=== PATIENT | male | born 1940 | race Caucasian/White ===

== ENCOUNTER 2021-04-09 18:15 | Inpatient (IN) | payer MEDICARE, SELFPAY ==
[2021-04-09] VITALS (38 sets, daily range): BP systolic 124–145; BP diastolic 59–92; PULSE 78–120; RESP 12–20; TEMP 36.3–36.6; O2SAT 98–100; BMI 19.8
--- NOTE | ~2021-04-09 | US_ITS ---
EXAMINATION: US venous doppler [facility] DATE: 04/11/2021 10:51 INDICATION: Acute pulmonary emboli. TECHNIQUE: Grayscale ultrasound images without and with compression and Doppler ultrasound images of the bilateral lower extremity veins were obtained. COMPARISON: None. FINDINGS: The visualized portions of right common femoral vein, profunda (deep) femoral vein, femoral vein, pop liteal vein, peroneal veins, posterior tibial veins, and greater saphenous vein outflow are patent. The visualized portions of left common femoral vein, profunda femoral vein, femoral vein, popliteal v ein, peroneal veins, posterior tibial veins, and greater saphenous vein outflow are patent. IMPRESSION: 1. No deep venous thrombosis. Reviewed, dictated and finalized at location A.
--- NOTE | ~2021-04-09 | CT_ITS ---
EXAMINATION: CTA chest PE protocol DATE: 04/10/2021 20:17 INDICATION: Asthma and with acute obstructive pulmonary disease and shortness of breath. Elevated d-d luis. TECHNIQUE: Computed tomography (CT) pulmonary angiogram of the chest was performed with 100 mL Omnipa que-350 intravenous contrast. Additional 3D reconstructions utilizing coronal maximum intensity proje ction (MIP) were performed. Automated exposure control and iterative reconstruction technique were em ployed. The dose-length product was 181.69 mGy-cm. COMPARISON: None FINDINGS: Excellent contrast opacification of the pulmonary arteries. There is moderate streak artifact from de nse contrast in the superior vena cava and right atrium. Mild to moderate respiratory motion most pro minent in the lower lung zones where it decreases sensitivity and specificity in some of the segmenta l and subsegmental pulmonary arteries. Pulmonary emboli are seen in the the inferior segmental pulmon peter artery of the lingula amount the anterior basilar segmental pulmonary artery of the left lower lo be, the lateral segmental pulmonary artery of the right middle lobe and the apical segmental pulmonar y artery of the right lower lobe. Moderate to severe emphysema with moderate biapical pleural-parench ymal scarring. No pneumonia, pulmonary edema or pleural effusion. A couple calcified pulmonary nodule s in the right upper lobe and along the left major fissure along with calcified mediastinal lymph nod es and splenic calcific lesions, all consistent with old granulomatous disease. Heart size is normal. No leftward bowing of the ventricular septum to suggest right heart strain. No pericardial effusion. Mild enlargement of the central pulmonary arteries consistent with pulmonary arterial hypertension. Thoracic aorta is normal in caliber with no dissection. Mild thoracic spondylosis. IMPRESSION: 1. Several bilateral pulmonary emboli with small to moderate clot burden. 2. Moderate to severe emphysema. 3. Enlargement of the central pulmonary arteries consistent with pulmonary arterial hypertension. Reviewed, dictated and finalized at location A. IMPRESSION: 1. Several bilateral pulmonary emboli with small to moderate clot burden. 2. Moderate to severe emphysema. 3. Enlargement of the central pulmonary arteries consistent with pulmonary meg rial hypertension.
--- NOTE | ~2021-04-09 | XR_ITS ---
EXAMINATION: XR chest 2V DATE: 04/09/2021 19:07 INDICATION: Shortness of breath. Chronic obstructive pulmonary disease and asthma. TECHNIQUE: frontal and lateral views of the chest were obtained. COMPARISON: Chest radiograph dated 04/28/2019 FINDINGS: Considers hyperexpansion of lungs with flattening of the diaphragm and increased retrosternal clear s pace consistent with emphysema. Unchanged small bilateral calcified pulmonary nodules consistent with old granulomatous disease. No other airspace opacities, pulmonary edema, pleural effusion or pneumot horax. No interval change in a likely nipple shadow projecting inferior to the anterior right fifth r ib. The cardiomediastinal silhouette is normal. Mild thoracic spondylosis. IMPRESSION: 1. Hyperexpansion of lungs consistent with given history of chronic obstructive pulmonary disease. No acute cardiopulmonary disease. Reviewed, dictated and finalized at location A.
--- NOTE | ~2021-04-09 | US_ITS ---
EXAMINATION: US venous doppler [facility] DATE: 04/11/2021 10:51 INDICATION: Acute pulmonary emboli. TECHNIQUE: Grayscale ultrasound images without and with compression and Doppler ultrasound images of the bilateral upper extremity veins were obtained. COMPARISON: None. FINDINGS: The visualized portions of the right internal jugular vein, subclavian vein, axillary vein, brachial veins, basilic vein, cephalic vein, radial vein, and ulnar vein are patent. The visualized portions of the left internal jugular vein, subclavian vein, axillary vein, brachial v eins, basilic vein, cephalic vein, radial vein, and ulnar vein are patent. IMPRESSION: 1. No deep venous thrombosis. Reviewed, dictated and finalized at location A.
--- NOTE | 2021-04-09 18:36 | ECG_ITS ---
Measurements Intervals [place] Rate: 108 P: 81 ID: [id number] QRS: -54 QRSD: 90 T: 80 QT: 322 QTc: 433 Interpretive Statements SINUS TACHYCARDIA ATRIAL PREMATURE COMPLEXES INCOMPLETE RIGHT BUNDLE BRANCH BLOCK LEFT ANTERIOR FASCICULAR BLOCK BASELINE ARTIFACT- I, II, AVR, AVL ABNORMAL ECG Electronically Signed On 04-09-2021 19:51:46 CDT by Eliud Bateman D.O.
--- NOTE | 2021-04-09 19:00 | PC.NURSE ---
Pt off floor to radiology
[2021-04-09 19:13] LABS: Basophils Percent Auto 0.5 % (0.2-1.2); Eosinophils Absolute Auto 0.1 K/mm3 (0-0.3); Eosinophils Percent Auto 1.4 % (0-4.4); Hematocrit 40.3 % (42.0-52.0); Hemoglobin 13.1 g/dL (14.0-18.0); Immature Granulocyte Absolute 0.04 K/mm3 (0.00-0.031); Immature Granulocyte Percent A 0.5 % (0-0.5); Lymphocytes Absolute Auto 1.92 K/mm3 (0.9-3.2); Lymphocytes Percent Auto 22.2 % (18.3-44.2); Mean Corpuscular HGB Conc 32.5 g/dl (32-36); Mean Corpuscular Hemoglobin 32.8 pg (26-34); Mean Corpuscular Volume 100.8 fl (80-100); Mean Platelet Volume 9.8 fl (7.4-10.4); Monocytes Absolute Auto 0.7 K/mm3 (0.1-0.6); Monocytes Percent Auto 8.2 % (2.6-8.5); Neutrophils Absolute Auto 5.8 K/mm3 (1.3-6.7); Neutrophils Percent Auto 67.2 % (45.5-73.1); Platelet Count Result 256 k/mm3 (150-375); Red Cell Distribution Width 14.8 % (11.5-14.5); White Blood Count 8.6 K/mm3 (4.5-10.0)
[2021-04-09 19:22] LABS: Anion Gap 6 mmol/L (8-16); Blood Urea Nitrogen 22 mg/dL (9-20); Calcium 9.7 mg/dL (8.4-10.2); Carbon Dioxide 32 mmol/L (22-30); Chloride 101 mmol/L (98-107); Estimated CRCL calculation 57 ml/min; Estimated Glomerular Filt Rate > 60; Glucose 119 mg/dL (65-110); Potassium 3.9 mmol/L (3.4-5.0); Sodium 139 mmol/L (137-145)
--- NOTE | 2021-04-09 19:48 | ED.GENADULT ---
HPI - General Adult General Chief complaint: Shortness of Breath/Dyspnea Stated complaint: SOB Time Seen by Provider: 04/09/21 19:23 Source: patient and EMS History of Present Illness HPI narrative: Patient is a 80 y/o male complaining of moderate SOB starting today. There is no known alleviating or exacerbating factor. He has some dry cough. He has no chest pain or fever. He was given Neb treatment. Related Data Home Medications Medication Instructions Recorded Confirmed albuterol sulfate 90 mcg/actuation 1 inhalation INHALATION Q6H PRN gm 06/28/19 06/28/19 aerosol inhaler budesonide-formoterol HFA 160 2 puff INHALATION Q12H 06/28/19 06/28/19 mcg-4.5 mcg/actuation aerosol inhaler Allergies Allergy/AdvReac Type Severity Reaction Status Date / Time No Known Allergies Allergy Verified 04/09/21 18:33 Review of Systems Constitutional: Constitutional: Denies chills, Denies fever(s), Denies headache(s) and Denies weakness Eyes: Eyes: Denies blurry vision ENT: Denies headache(s) and Denies neck pain Cardiovascular: Cardiovascular: Denies chest pain and Reports dyspnea Respiratory: Respiratory: Reports cough and Reports dyspnea Gastrointestinal: Gastrointestinal: Denies abdominal pain, Denies diarrhea, Denies nausea and Denies vomiting Genitourinary: Genitourinary: Denies hematuria and Denies dysuria Musculoskeletal: Musculoskeletal: Denies back pain and Denies neck pain Neurologic: Denies headache(s) and Denies weakness PMFSH Past Medical History Medical History (Updated 04/09/21 @ 20:58 by Kym Neumann MD) Asthma Cataract 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 Cataract, left eye Cataract, right eye COPD (chronic obstructive pulmonary disease) Encounter for long-term (current) use of other medications Heart disease Family History Family History Father Diabetes mellitus Sibling Kidney disease Social History Social History Smoking packs per day: 0.5 Smoking cigarettes per day: 10.0 Years smoked: 64 Smoking pack-years: 32.00 Smoking status: Current every day smoker Alcohol intake: never Substance use: never Exam Const: General: no acute distress and well developed Orientation/consciousness: oriented to person, oriented to place and confusion HENMT: Head: normocephalic Ears: external ears normal General nose exam: Normal external nose present Eyes: General: appearance normal, both eyes and all related structures Conjunctivae: conjunctivae normal Neck: Neck: normal visual inspection and full ROM Chest: Chest palpation & inspection: normal inspection of the chest and no tenderness Resp: Effort & Inspection: normal respiratory effort Auscultation: wheezes Cardio: Rate: regular rate Rhythm: regular rhythm GI: GI Palp: No abdominal tenderness and Yes Soft to palpation Skin: General skin exam: normal color and turgor normal Neuro: General: oriented to person and oriented to place Cognition (Neuro): abnormal cognition Extrem: General: normal to inspection, full ROM and no pedal edema Psych: Appearance: grossly normal Mental Status: mental status grossly normal Affect: normal affect Course Consultations Consultation #1: Discussed with Dr. Casper, who agrees to admit. Date: 04/09/21 Time: 20:17 Vital Signs Vital signs: Vital Signs Temperature 36.6 C 04/09/21 18:19 Pulse Rate 108 H 04/09/21 18:19 Respiratory Rate 16 04/09/21 18:19 Blood Pressure 128/59 L 04/09/21 18:19 Pulse Oximetry 99 04/09/21 18:19 Temperature 36.6 C 04/09/21 18:19 Pulse Rate 102 H 04/09/21 20:04 Respiratory Rate 16 04/09/21 20:04 Blood Pressure 128/59 L 04/09/21 18:19 Pulse Oximetry 100 04/09/21 18:33 Medical Decision Making Vital Signs Vital Signs: Vital Signs Temperature 36.6 C 04/09/21 18:19 Pulse Rate 108 H 04/09/21 18
[2021-04-09] MEDS: methylPREDNISolone SOD SUCC 125 MG VIAL IV PUSH (20:00)
[2021-04-09] MEDS: IPRATROPIUM BR 0.02% INH SOLN 0.5 MG/2.5 ML VIAL INHALATION (20:04)
[2021-04-09] MEDS: ALBUTEROL SULFATE NEB 2.5 MG/0.5 ML INH INHALATION (20:04)
[2021-04-09 20:36] LABS: Troponin I < 0.012 ng/mL (0.000-0.034)
--- NOTE | 2021-04-09 20:52 | PC.NURSE ---
Called [facility] in [place] to clarify code status. Per EMS, staff stated patient was DNR but no legal paperwork was sent. Requested paperwork be sent to our facility.
[2021-04-10] VITALS (20 sets, daily range): BP systolic 119–129; BP diastolic 59–73; PULSE 61–108; RESP 14–24; TEMP 36.2–36.9; O2SAT 93–100
--- NOTE | 2021-04-10 04:26 | PM.IMHP ---
H&P: HPI History of Present Illness Date/Time: 04/10/21 04:26 Chief Complaint: SHORTNESS OF BREATH Narrative: THIS IS A 80-YEAR-OLD MALE WITH PAST MEDICAL HISTORY SIGNIFICANT FOR COPD, TOBACCO DEPENDENCE, CHRONIC PAIN. PATIENT IS A USP RESIDENT, HE WAS BROUGHT IN TODAY DUE TO CONCERNS HE WAS HAVING INCREASINGLY WORSENING SHORTNESS OF BREATH WITH COUGH AND SPUTUM PRODUCTION. AT THE TIME OF MY VISIT PATIENT WAS IN THE EMERGENCY ROOM AND HE DENIED ANY DISCOMFORT HE WANTED SOMETHING TO EAT, STATED THAT HE HAS BEEN HAVING A LOT OF SHORTNESS OF BREATH OF LATELY AND HE SMOKES 1 PACK OF CIGARETTES DAILY. PRELIMINARY WORKUP WAS SIGNIFICANT FOR CHEST X-RAY WITH HYPER IN FLEXION OF THE LUNGS, REST OF WORKUP WAS ESSENTIALLY NONREVEALING. PATIENT HAS BEEN PLACED IN OBSERVATION FOR FURTHER MANAGEMENT AND TREATMENT. 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 Cataract, left eye Cataract, right eye COPD (chronic obstructive pulmonary disease) Encounter for long-term (current) use of other medications Heart disease Family History Family History Father Diabetes mellitus Sibling Kidney disease Social History Social History Smoking packs per day: 1 Smoking cigarettes per day: 20.0 Years smoked: 64 Smoking pack-years: 64.00 Smoking status: Former smoker Tobacco type: cigarettes Second hand tobacco smoke exposure: Yes Alcohol intake: never Substance use: never Substance use type: does not use Spiritual care concerns: No Meds Home Medications and Allergies Home Medications Medication Instructions Recorded Confirmed Type ipratropium 0.5 mg-albuterol 3 mg 3 ml INHALATION Q6H PRN #180 ml 06/28/19 04/09/21 Rx (2.5 mg base)/3 mL nebulization soln hydrocodone-acetaminophen 1 tablet PO Q4H PRN 04/09/21 04/09/21 History nicotine 1 patch TRANSDERMAL DAILY 04/09/21 04/09/21 History Allergies Allergy/AdvReac Type Severity Reaction Status Date / Time No Known Allergies Allergy Verified 04/09/21 22:59 Vital Signs Vital Signs - 24 hr 04/09/21 18:19 04/09/21 18:28 04/09/21 18:29 Temperature 98 F Pulse Rate 108 H 109 H 113 H Respiratory Rate 16 17 13 Blood Pressure 128/59 L 128/59 L Pulse Oximetry 99 100 100 04/09/21 18:30 04/09/21 18:31 04/09/21 18:33 Temperature Pulse Rate 108 H 107 H 110 H Respiratory Rate 15 15 Blood Pressure Pulse Oximetry 99 100 100 04/09/21 18:45 04/09/21 18:46 04/09/21 18:51 Temperature Pulse Rate 114 H 107 H 103 H Respiratory Rate 18 12 18 Blood Pressure 137/79 Pulse Oximetry 99 99 99 04/09/21 19:06 04/09/21 19:07 04/09/21 19:15 Temperature Pulse Rate 101 H 109 H 111 H Respiratory Rate 19 16 17 Blood Pressure 131/87 Pulse Oximetry 99 100 98 04/09/21 19:16 04/09/21 19:30 04/09/21 19:45 Temperature Pulse Rate 109 H 106 H 104 H Respiratory Rate 18 17 Blood Pressure 124/92 H Pulse Oximetry 98 98 99 04/09/21 19:47 04/09/21 20:02 04/09/21 20:04 Temperature Pulse Rate 101 H 120 H 102 H Respiratory Rate 17 13 16 Blood Pressure 143/90 H Pulse Oximetry 99 99 04/09/21 20:39 04/09/21 20:45 04/09/21 20:46 Temperature Pulse Rate 101 H 93 95 Respiratory Rate 16 15 13 Blood Pressure 145/88 H Pulse Oximetry 100 100 99 04/09/21 21:00 04/09/21 21:01 04/09/21 21:02 Temperature Pulse Rate 98 92 93 Respiratory Rate 13 20 16 Blood Pressure 145/87 H Pulse Oximetry 100 100 100 04/09/21 21:15 04/09/21 21:16 04/09/21 21:30 Temperature Pulse Rate 95 92 87 Respiratory
[2021-04-10] MEDS: methylPREDNISolone SOD SUCC 40 MG VIAL IV PUSH ×3 (06:21→17:30)
[2021-04-10] MEDS: ALBUTEROL SULFATE NEB 2.5 MG/0.5 ML INH INHALATION ×5 (08:06→21:31)
--- NOTE | 2021-04-10 13:04 | PM.IMPN ---
Progress Note: A&P Assessment and Plan (1) Asthma exacerbation in COPD: Code(s): J44.1 - Chronic obstructive pulmonary disease with (acute) exacerbation; J45.901 - Unspecified asthma with (acute) exacerbation Status: Acute Assessment and Plan: Patient appears to be having an COPD exacerbation with minimal improvement -continue IV steroids, albuterol nebs, and will add scheduled Atrovent nebs -patient has been placed on Levaquin due to severity of COPD exacerbation -no PE suspected at this time. No signs of DVT. Will monitor -add Symbicort, obtain pulmonology consult -consider further lung imaging such as a high resolution CT if pt fails to improve. Will await recommendations from pulmonology -Will give mag x 1 now to see if this helps. He admits to having asthma and COPD (2) Tobacco dependence: Code(s): F17.200 - Nicotine dependence, unspecified, uncomplicated Status: Acute Assessment and Plan: Nicotine patch as needed (3) Sinus tachycardia: Code(s): R00.0 - Tachycardia, unspecified Status: Acute Assessment and Plan: Likely due to lung disease -no cp -ekg reviewed -monitor Time Spent With Patient Time with patient: 25 - 35 minutes Subjective Date/time seen: 04/10/21 13:04 Interval history: Pt is a 80-year-old male here for COPD exacerbation. Patient was seen today and states he is feeling pretty short of breath. He says he does well for about 4 hours but right before his next breathing treatment he feels short of breath and requires the breathing treatment pretty immediately. He says they do help but he does not feel much better. Continues to cough and is coughing up a little sputum. He denies chest pain, nausea, vomiting, fevers, chills, abdominal pain or dysuria. He states he does not use oxygen at home. He does smoke but is declining a nicotine patch. Review of Systems Review of Systems: All systems reviewed & are unremarkable except as noted in HPI and below Exam Narrative: General: Underweight patient resting comfortably in bed in no acute distress but short of breath HEENT: normocephalic Neck: supple Neuro: Alert and oriented x4 CV:RRR Resp: Significantly wheezy bilaterally with some rhonchi. Slight conversational dyspnea with long sentences. Sitting up and leaning forward Abd: Soft, non distended. No pain to palpation. Positive bowel sounds Extremities: No swelling, erythema, or pain to palpation. Objective Data Vital Signs Vital Signs: Vital Signs - 24 hr 04/09/21 18:19 04/09/21 18:28 04/09/21 18:29 Temperature 98 F Pulse Rate 108 H 109 H 113 H Respiratory Rate 16 17 13 Blood Pressure 128/59 L 128/59 L Pulse Oximetry 99 100 100 04/09/21 18:30 04/09/21 18:31 04/09/21 18:33 Temperature Pulse Rate 108 H 107 H 110 H Respiratory Rate 15 15 Blood Pressure Pulse Oximetry 99 100 100 04/09/21 18:45 04/09/21 18:46 04/09/21 18:51 Temperature Pulse Rate 114 H 107 H 103 H Respiratory Rate 18 12 18 Blood Pressure 137/79 Pulse Oximetry 99 99 99 04/09/21 19:06 04/09/21 19:07 04/09/21 19:15 Temperature Pulse Rate 101 H 109 H 111 H Respiratory Rate 19 16 17 Blood Pressure 131/87 Pulse Oximetry 99 100 98 04/09/21 19:16 04/09/21 19:30 04/09/21 19:45 Temperature Pulse Rate 109 H 106 H 104 H Respiratory Rate 18 17 Blood Pressure 124/92 H Pulse Oximetry 98 98 99 04/09/21 19:47 04/09/21 20:02 04/09/21 20:04 Temperature Pulse Rate 101 H 120 H 102 H Respiratory Rate 17 13 16 Blood Pressure 143/90 H Pulse Oximetry 99 99 04/09/21 20:39 04/09/21 20:45 04/09/21 20:46 Temperature Pulse Rate 101 H 93 95 Respiratory Rate 16 15 13 Blood Pressure 145/88 H Pulse Oximetry 100 100 99 04/09/21 21:00 04/09/21 21:01 04/09/21 21:02 Temperature Pulse Rate 98 92 93 Respiratory Rate 13 20 16 Blood Pressure 145/87 H Pulse Oximetry 100 100 100 04/09/21 21:15
[2021-04-10] MEDS: IPRATROPIUM BR 0.02% INH SOLN 0.5 MG/2.5 ML VIAL INHALATION ×3 (13:58→21:32)
[2021-04-10] MEDS: MAGNESIUM SULF 2 GM/WATER 50ML 2 GM/50 ML BAG IVPB (14:07)
[2021-04-10 14:10] LABS: Alveolar/Arterial O2 Gradient 52.7 mmHg; Base Excess ABG 2.1 mEq/l (+/-2.0); Carboxyhemoglobin 0.3 % THb (0-2.0); Device NASAL CANNULA; Fractional Inspired Oxygen 28 %; HCO3 ABG 27.3 mEq/l (22.0-26.0); Methemoglobin ABG 0.4 %THb (0-1.5); Modified Allen's Test Pass; Oxygen Content ABG 18.4 %vol (16.0-22.0); Oxygen Saturation ABG 97.2 % (95.0-100.0); Oxyhemoglobin 95.9 % THb (90.0-100.0); PCO2 ABG 44.8 mmHg (35.0-45.0); PO2 ABG 94.1 mmHg (80.0-100.0); PO2 FiO2 Ratio Arterial Blood 3.36 %; Reduced Hemoglobin 3.4 %THb (0-5.0); Site Drawn RIGHT RADIAL; Total Hemoglobin 13.6 g/dL (12.0-18.0); pH ABG 7.403 (7.350-7.450)
--- NOTE | 2021-04-10 16:08 | PM.CNPUL ---
Assessment and Plan Assessment and plan (1) Asthma-COPD overlap syndrome: Code(s): J44.9 - Chronic obstructive pulmonary disease, unspecified Status: Acute Assessment and Plan: Patient tells me that he had asthma as a child and has asthma since age 23 and also with COPD. I have no PFTs. Patient does have hyper inflation on his chest x-ray. Patient currently with 1 day onset acute shortness of breath and has improved with Solu-Medrol, bronchodilators and antibiotics. I will check a D-dimer and if this is positive I will perform a CT angiogram of the chest to exclude pulmonary embolism. At this time I agree with Solu-Medrol 40 mg IV q.6, albuterol 2.5 mg q.4 nebulize, ipratropium 0.5 mg nebs q.4 hours. Will discontinue Symbicort as he is on maximal beta agonists with the albuterol 2.5 mg nebs Q for and is on systemic steroids at this time. Continue Levaquin at this time. Of note patient states that he tells me he wheezes every day even when he is feeling well. His blood gas on 2 L was 7.40/45/90 for so there is no evidence of hypercarbic respiratory failure. Continue supplemental oxygen to maintain saturations 90-94%. Wean as tolerated. Will follow with you. History of Present Illness History of Present Illness Consult date: 04/10/21 Requesting physician: Mahsa Perdomo PA-C Reason for consult: asthma and COPD Chief complaint: COPD Exacerbation Narrative: This is a new Pulmonary consult for COPD 80-year-old man with a history of asthma, COPD, status post colostomy for unknown reasons presented to the emergency department on 04/09/2021 with shortness of breath. patient tells me that he has asthma as a child and then outgrew it but his asthma returned at age 23. Patient is a lifelong smoker from age 16 and he quit 6 months ago at 1 pack per day and was diagnosed with COPD many years ago. Patient states that at baseline he has 4 block dyspnea on exertion, a chronic cough with no phlegm production and That he does not wear oxygen at his group home. Patient tells me that he developed shortness of breath acutely with no relief from his albuterol and ipratropium DuoNeb. Patient presented to the emergency department on 04/09 with wheezing, white blood cell count 8.6 with eosinophils 1.4% or 117 per micro L, a blood gas on 2 L nasal cannula with a pH of 7.40/45/94. A chest x-ray with hyper expansion and no focal infiltrates. Patient was treated for a COPD exacerbation with IV Solu-Medrol Juanito M a albuterol and ipratropium nebulizers and Levaquin antibiotic. 04/10 Patient tells me that he is 70% back to normal but that he still has some congestion. Patient denied fever, chills, rigors, chest pain. Patient tells me that he had no change in his chronic cough and no change in his chronic phlegm production. Patient states that he smoked 1 pack of day of cigarettes from age 16 to 6 months ago for total of 64 pack years. Patient was exposed to secondhand smoke from his father and recently from his 2 daughters that he lived with. Patient denies vaping, illicit drug use, sandblasting, welding, asbestos work or professional painting. 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 DATA: EXAMINATION: XR chest 2V DATE: 04/09/2021 19:07 INDICATION: Shortness of breath. Chronic obstructive pulmonary disease and asthma. TECHNIQUE: frontal and lateral views of the chest were obtained. COMPARISON: Chest radiograph dated 04/28/2019 FINDINGS: Considers hyperexpansion of lungs with flattening of the diaphragm and increased retrosternal clear space consistent with emphysema. Unchanged small bilateral calcified pulmonary nodules consistent with old granulomatous disease. No other airspace opacities, pulmonary edema, pleural effusion or pneumothorax. No interval change in a likely nipple shadow projecting inferior to the anterior right fifth rib.
[2021-04-10 19:23] LABS: D Dimer 1.86 ug/mL (<0.48)
[2021-04-10 21:22] LABS: Partial Thromboplastin Time 26.5 SECONDS (22.3-36.8); Prothrombin Time 13.5 Seconds (11.1-14.7)
[2021-04-10 21:29] LABS: Basophils Percent Auto 0.1 % (0.2-1.2); Hematocrit 41.2 % (42.0-52.0); Hemoglobin 13.4 g/dL (14.0-18.0); Immature Granulocyte Absolute 0.09 K/mm3 (0.00-0.031); Immature Granulocyte Percent A 0.7 % (0-0.5); Lymphocytes Absolute Auto 0.47 K/mm3 (0.9-3.2); Lymphocytes Percent Auto 3.5 % (18.3-44.2); Mean Corpuscular HGB Conc 32.5 g/dl (32-36); Mean Corpuscular Hemoglobin 32.8 pg (26-34); Mean Corpuscular Volume 100.7 fl (80-100); Mean Platelet Volume 9.9 fl (7.4-10.4); Monocytes Absolute Auto 0.2 K/mm3 (0.1-0.6); Monocytes Percent Auto 1.3 % (2.6-8.5); Neutrophils Absolute Auto 12.7 K/mm3 (1.3-6.7); Neutrophils Percent Auto 94.4 % (45.5-73.1); Platelet Count Result 284 k/mm3 (150-375); Red Blood Count 4.09 M/mm3 (4.6-6.20); Red Cell Distribution Width 14.6 % (11.5-14.5); White Blood Count 13.5 K/mm3 (4.5-10.0)
[2021-04-10] MEDS: HEPARIN SOD/D5W 100 UNITS/ML 25,000 UNITS/250 ML BAG 10 UNITS IV CONT (22:12)
[2021-04-10] MEDS: HEPARIN SODIUM 5,000 UNITS/ML VIAL 4500 UNITS IV PUSH (22:19)
[2021-04-11] VITALS (20 sets, daily range): BP systolic 123–138; BP diastolic 62–94; PULSE 53–106; RESP 14–20; TEMP 36.3–37.1; O2SAT 92–100
--- NOTE | 2021-04-11 | ECHO_ITS ---
Patient Info Name: Rey Cole Age: 80 years : 1940 Gender: Male Ht: 66 in Wt: 122 lbs BSA: 1.60 m2 HR: 82 bpm BP: 137 / 76 mmHg Exam Date: 04/11/2021 12:07 PM Exam Location: [facility] Patient Status: Inpatient Admit Date: 04/10/2021 Staff Ordering Physician: Matthew Saez MD Hospital Nurse Liaison: Sy Rawls RDCS, RT Attending Provider: Mahsa Perdomo PA-C Referring Physician: Se COVARRUBIAS; Exam Type: CA echo doppler color flow Study Info Indications I26.99 - Other pulmonary embolism without acute cor pulmonale Complete two-dimensional, color flow and Doppler transthoracic echocardiogram is performed. Strain analysis performed. Summary 1. Complete two-dimensional, color flow and Doppler transthoracic echocardiogram is performed. 2. Left ventricular chamber dimension is normal. 3. Left ventricular systolic function is normal, estimated at 60-65%. 4. The left ventricular diastolic function is grade I diastolic dysfunction. 5. E/e' 10 is mildly elevated. 6. Global longitudinal strain is normal at -18.6%. Left Ventricle E/e' 10 is mildly elevated. Global longitudinal strain is normal at -18.6%. Left ventricular chamber dimension is normal. Left ventricular systolic function is normal, estimated at 60-65%. The left ventricular diastolic function is grade I diastolic dysfunction. Right Ventricle Right ventricular systolic function is normal and with normal TAPSE 2.1 cm. Right ventricular chamber dimension is normal. Left Atria Left atrial chamber dimension is normal. Right Atria Right atrial chamber dimension is normal. Aortic Valve The aortic valve is trileaflet. There is no aortic valve stenosis. There is no aortic valve regurgitation. Pulmonic Valve There is no pulmonic regurgitation. Mitral Valve There is no mitral valve stenosis. There is no mitral valve regurgitation. Tricuspid Valve There is no tricuspid valve regurgitation. Pericardium/Pleural There is no pericardial effusion. Inferior Vena Cava Normal inferior vena cava with >50% collapse upon inspiration consistent with normal right atrial pressure, 5 mmHg. Aorta The aortic root size at the sinus of Valsalva is normal. Left Ventricular Outflow Tract Name Value Normal LVOT 2D LVOT Diameter 2.1 cm LVOT Doppler LVOT Peak Gradient 4 mmHg LVOT Mean Gradient 2 mmHg LVOT VTI 22 cm LVOT VTI/AV VTI Ratio 0.8 LVOT Stroke Volume 78 ml LVOT CO 5.2 l/min LVOT CI 3.3 l/min/m2 Mitral Valve Name Value Normal MV Doppler MV Decel Jasper 414 cm/s2 MV PHT 56 ms MV Ar
[2021-04-11] MEDS: methylPREDNISolone SOD SUCC 40 MG VIAL IV PUSH ×2 (00:43→05:14)
[2021-04-11] MEDS: ALBUTEROL SULFATE NEB 2.5 MG/0.5 ML INH INHALATION ×5 (01:08→21:48)
[2021-04-11] MEDS: IPRATROPIUM BR 0.02% INH SOLN 0.5 MG/2.5 ML VIAL INHALATION ×5 (01:09→21:48)
[2021-04-11 05:56] LABS: Basophils Percent Auto 0.1 % (0.2-1.2); Hematocrit 37.3 % (42.0-52.0); Hemoglobin 12.1 g/dL (14.0-18.0); Immature Granulocyte Percent A 0.6 % (0-0.5); Lymphocytes Absolute Auto 0.71 K/mm3 (0.9-3.2); Lymphocytes Percent Auto 4.5 % (18.3-44.2); Mean Corpuscular HGB Conc 32.4 g/dl (32-36); Mean Corpuscular Volume 101.6 fl (80-100); Mean Platelet Volume 10.3 fl (7.4-10.4); Monocytes Absolute Auto 0.4 K/mm3 (0.1-0.6); Monocytes Percent Auto 2.3 % (2.6-8.5); Neutrophils Absolute Auto 14.6 K/mm3 (1.3-6.7); Neutrophils Percent Auto 92.5 % (45.5-73.1); Platelet Count Result 258 k/mm3 (150-375); Red Blood Count 3.67 M/mm3 (4.6-6.20); Red Cell Distribution Width 14.5 % (11.5-14.5); White Blood Count 15.8 K/mm3 (4.5-10.0)
[2021-04-11 06:03] LABS: Partial Thromboplastin Time 142.9 SECONDS (22.3-36.8)
[2021-04-11 06:09] LABS: Alanine Aminotransferase 15 U/L (4-50); Albumin Level 3.4 g/dL (3.5-5.1); Alkaline Phosphatase 79 U/L (38-126); Anion Gap 8 mmol/L (8-16); Aspartate Amino Transferase 19 U/L (17-59); Bilirubin,Total 0.5 mg/dL (0.2-1.3); Blood Urea Nitrogen 23 mg/dL (9-20); CRP 0.8 mg/dL (<1.0); Calcium 9.1 mg/dL (8.4-10.2); Carbon Dioxide 27 mmol/L (22-30); Chloride 101 mmol/L (98-107); Estimated CRCL calculation 59 ml/min; Estimated Glomerular Filt Rate > 60; Glucose 178 mg/dL (65-110); Potassium 3.9 mmol/L (3.4-5.0); Sodium 136 mmol/L (137-145)
[2021-04-11 07:08] LABS: Folic Acid 14.5 ng/mL (2.76->20)
--- NOTE | 2021-04-11 09:06 | PM.PNPUL ---
Progress Note: A&P Assessment and Plan (1) Asthma-COPD overlap syndrome: Code(s): J44.9 - Chronic obstructive pulmonary disease, unspecified Status: Acute Assessment and Plan: 04/10 Patient tells me that he had asthma as a child and has asthma since age 23 and also with COPD. I have no PFTs. Patient does have hyper inflation on his chest x-ray. Patient currently with 1 day onset acute shortness of breath and has improved with Solu-Medrol, bronchodilators and antibiotics. I will check a D-dimer and if this is positive I will perform a CT angiogram of the chest to exclude pulmonary embolism. At this time I agree with Solu-Medrol 40 mg IV q.6, albuterol 2.5 mg q.4 nebulize, ipratropium 0.5 mg nebs q.4 hours. Will discontinue Symbicort as he is on maximal beta agonists with the albuterol 2.5 mg nebs Q for and is on systemic steroids at this time. Continue Levaquin at this time. Of note patient states that he tells me he wheezes every day even when he is feeling well. His blood gas on 2 L was 7.40/45/90 for so there is no evidence of hypercarbic respiratory failure. Continue supplemental oxygen to maintain saturations 90-94%. Wean as tolerated. 04/11 Patient states that he continues to improve. He tells me he has 90% back to his baseline. He still has some congestion. He denies any chest pain. Patient does have wheezing on exam but he tells me he wheezes every day even when he is feeling well. Saturations were 100% on 2 L, I turned him to room air and his saturations were 89%. I placed him on 1 L and he was 93%. I will discontinue Solu-Medrol and place him on prednisone 40 mg p.o. q.day. I will continue albuterol and ipratropium nebulizers q.4 hours. I will continue Levaquin (started 04/10) for his cough and congestion. No evidence of a pneumonia on the CT angiogram of the chest. Will follow with you. (2) Pulmonary embolism: Code(s): I26.99 - Other pulmonary embolism without acute cor pulmonale Status: Acute Assessment and Plan: 04/11 To denies chest pain, hemoptysis or any active bleeding today. on 04/10 D Dimer positive and CTA demonstrated segmental PE in lingula, LLL, RML and RLL started on IV heparin drip. He also has apical predominant severe centrilobular and mild paraseptal emphysema. Mild enlargement of the pulmonary arteries. No focal infiltrates. No consolidations. No masses. I will obtain echocardiogram to assess for LV and RV function, and pulmonary pressures. I will obtain upper and lower extremity Dopplers looking for DVT. Patient has tolerated the IV heparin overnight with out any signs of active bleeding and I will discuss with the hospitalist conversion to a direct oral anticoagulant that his insurance will cover. Subjective Date/time seen: 04/11/21 09:06 Interval history: 04/10 This is a new Pulmonary consult for COPD 80-year-old man with a history of asthma, COPD, status post colostomy for unknown reasons presented to the emergency department on 04/09/2021 with shortness of breath. patient tells me that he has asthma as a child and then outgrew it but his asthma returned at age 23. Patient is a lifelong smoker from age 16 and he quit 6 months ago at 1 pack per day and was diagnosed with COPD many years ago. Patient states that at baseline he has 4 block dyspnea on exertion, a chronic cough with no phlegm production and That he does not wear oxygen at his intermediate. Patient tells me that he developed shortness of breath acutely with no relief from his albuterol and ipratropium DuoNeb. Patient presented to the emergency department on 04/09 with wheezing, white blood cell count 8.6 with eosinophils 1.4% or 117 per micro L, a blood gas on 2 L nasal cannula with a pH of 7.40/45/94. A chest x-ray with hyper expansion and no focal infiltrates. Patient was treated for a COPD exacerbation with IV Solu-Medrol Juanito M a albuterol and ipratropium nebulizers
[2021-04-11 10:08] LABS: NT Pro B Type Natriuretic Pept 219 pg/mL (5-100); Troponin I < 0.012 ng/mL (0.000-0.034)
[2021-04-11] MEDS: predniSONE 20 MG TABLET 40 MG PO (12:08)
[2021-04-11] MEDS: HEPARIN SODIUM 5,000 UNITS/ML VIAL 2000 UNITS IV PUSH (12:51)
--- NOTE | 2021-04-11 15:28 | PM.IMPN ---
Progress Note: A&P Assessment and Plan (1) Asthma exacerbation in COPD: Code(s): J44.1 - Chronic obstructive pulmonary disease with (acute) exacerbation; J45.901 - Unspecified asthma with (acute) exacerbation Status: Acute Assessment and Plan: COPD exacerbation improving -continue steroids (now oral) and nebulizers -patient has been placed on Levaquin due to severity of COPD exacerbation, continue with that -pulmonology consulted and I spoke with him about the plan of care (2) Tobacco dependence: Code(s): F17.200 - Nicotine dependence, unspecified, uncomplicated Status: Acute Assessment and Plan: Nicotine patch as needed (3) Sinus tachycardia: Code(s): R00.0 - Tachycardia, unspecified Status: Acute Assessment and Plan: Resolved -could be due to lung disease and or PE -no chest pain -echo without wall motion abnormalities (4) Pulmonary embolism: Code(s): I26.99 - Other pulmonary embolism without acute cor pulmonale Status: Acute Assessment and Plan: Noted on CTA, no lower extremity or upper extremity DVTs -patient was placed on heparin drip and will be transitioned to Eliquis tonight -H&H stable -monitor for blood loss Additional Plan Likely discharge tomorrow 04/12 Subjective Date/time seen: 04/11/21 15:28 Interval history: Pt is a 80-year-old male here for COPD exacerbation. Patient was seen today and doing much better than yesterday. He says he feels mildly short of breath but much better than he had been. He says he usually always has some shortness of breath. He has no chest pain. Cough is improving. He states he has a rash all over his body that he says happens every time he comes into the hospital. He is unsure if it is medication or environmental. It is somewhat itchy but he is not bothered by it and said it will go way. Exam Narrative: General: Underweight patient resting comfortably in bed in no acute distress playing solitaire HEENT: normocephalic Neck: supple Neuro: Alert and oriented x4 CV:RRR Resp: Wheezing and rhonchi bilaterally, improved since yesterday. No conversational dyspnea S Abd: Soft, non distended. No pain to palpation. Positive bowel sounds Extremities: No swelling, erythema, or pain to palpation. Skin: Erythematous papular rash on the legs and arms that is blanchable Objective Data Vital Signs Vital Signs: Vital Signs - 24 hr 04/10/21 16:00 04/10/21 16:05 04/10/21 17:21 Temperature 97.4 F L Pulse Rate 94 89 92 Respiratory Rate 20 20 Blood Pressure 129/59 L Pulse Oximetry 97 04/10/21 17:30 04/10/21 20:00 04/10/21 20:31 Temperature 97.6 F 97.6 F Pulse Rate 93 78 81 Respiratory Rate 20 20 20 Blood Pressure 127/61 127/61 Pulse Oximetry 100 100 04/10/21 21:32 04/10/21 23:39 04/11/21 00:00 Temperature 97.2 F L Pulse Rate 61 84 82 Respiratory Rate 14 16 Blood Pressure 122/68 Pulse Oximetry 95 100 04/11/21 01:09 04/11/21 03:44 04/11/21 04:00 Temperature 97.4 F L Pulse Rate 87 101 H 84 Respiratory Rate 16 17 Blood Pressure 138/62 Pulse Oximetry 100 04/11/21 08:00 04/11/21 08:32 04/11/21 08:44 Temperature Pulse Rate 106 H 88 Respiratory Rate 20 16 Blood Pressure 137/76 Pulse Oximetry 92 92 04/11/21 08:45 04/11/21 08:53 04/11/21 12:00 Temperature 98.7 F Pulse Rate 88 82 88 Respiratory Rate 14 20 Blood Pressure 138/94 H Pulse Oximetry 93 99 04/11/21 13:26 04/11/21 13:37 Temperature Pulse Rate 83 85 Respiratory Rate 16 14 Blood Pressure Pulse Oximetry Intake/Output Intake/Output: Intake & Output 04/08/21 04/09/21 04/10/21 04/11/21 23:59 23:59 23:59 23:59 Intake Total 980 810 Output Total 200 Balance 980 610 Meds/Results Medications: Active Medications Generic Name Dose Route Start Last Admin Trade Name Freq PRN Reason Stop Dose Admin Hydrocodone Bitart/Acetaminophen 1
[2021-04-11 19:28] LABS: Partial Thromboplastin Time 100.3 SECONDS (22.3-36.8)
[2021-04-11] MEDS: HEPARIN SOD/D5W 100 UNITS/ML 25,000 UNITS/250 ML BAG 9 UNITS IV CONT (23:32)
[2021-04-12] VITALS (16 sets, daily range): BP systolic 117–135; BP diastolic 59–73; PULSE 73–104; RESP 16–20; TEMP 36.3–36.7; O2SAT 93–100
[2021-04-12 01:31] LABS: Partial Thromboplastin Time 93.7 SECONDS (22.3-36.8)
[2021-04-12] MEDS: IPRATROPIUM BR 0.02% INH SOLN 0.5 MG/2.5 ML VIAL INHALATION ×5 (04:34→21:04)
[2021-04-12] MEDS: ALBUTEROL SULFATE NEB 2.5 MG/0.5 ML INH INHALATION ×5 (04:34→21:05)
[2021-04-12 06:19] LABS: Partial Thromboplastin Time 97.7 SECONDS (22.3-36.8)
[2021-04-12 08:11] LABS: Hematocrit 39.2 % (42.0-52.0); Hemoglobin 12.7 g/dL (14.0-18.0)
[2021-04-12] MEDS: predniSONE 20 MG TABLET 40 MG PO (08:30)
--- NOTE | 2021-04-12 08:30 | ECG_ITS ---
Measurements Intervals [place] Rate: 85 P: 81 CA: 141 QRS: 21 QRSD: 90 T: 81 QT: 364 QTc: 434 Interpretive Statements SINUS RHYTHM WITH SINUS ARRHYTHMIA INCOMPLETE RIGHT BUNDLE BRANCH BLOCK BASELINE ARTIFACT- II, III, AVR, AVL, AVF BORDERLINE ECG Electronically Signed On 04-12-2021 9:21:12 CDT by Eliud Bateman D.O.
--- NOTE | 2021-04-12 08:30 | PM.PNPUL ---
Progress Note: A&P Assessment and Plan (1) Asthma-COPD overlap syndrome: Code(s): J44.9 - Chronic obstructive pulmonary disease, unspecified Status: Acute Assessment and Plan: 04/10 Patient tells me that he had asthma as a child and has asthma since age 23 and also with COPD. I have no PFTs. Patient does have hyper inflation on his chest x-ray. Patient currently with 1 day onset acute shortness of breath and has improved with Solu-Medrol, bronchodilators and antibiotics. I will check a D-dimer and if this is positive I will perform a CT angiogram of the chest to exclude pulmonary embolism. At this time I agree with Solu-Medrol 40 mg IV q.6, albuterol 2.5 mg q.4 nebulize, ipratropium 0.5 mg nebs q.4 hours. Will discontinue Symbicort as he is on maximal beta agonists with the albuterol 2.5 mg nebs Q for and is on systemic steroids at this time. Continue Levaquin at this time. Of note patient states that he tells me he wheezes every day even when he is feeling well. His blood gas on 2 L was 7.40/45/90 for so there is no evidence of hypercarbic respiratory failure. Continue supplemental oxygen to maintain saturations 90-94%. Wean as tolerated. 04/11 Patient states that he continues to improve. He tells me he has 90% back to his baseline. He still has some congestion. He denies any chest pain. Patient does have wheezing on exam but he tells me he wheezes every day even when he is feeling well. Saturations were 100% on 2 L, I turned him to room air and his saturations were 89%. I placed him on 1 L and he was 93%. I will discontinue Solu-Medrol and place him on prednisone 40 mg p.o. q.day. I will continue albuterol and ipratropium nebulizers q.4 hours. I will continue Levaquin (started 04/10) for his cough and congestion. No evidence of a pneumonia on the CT angiogram of the chest. 04/12 Patient told me he was back to his normal when I saw him early this morning. Overnight oximetry on room air with time of saturations less than or equal to 88% was 1 minutes. He does not qualify for home nocturnal oxygen use. Since then he has had coughing paroxysm with vague chest pain and EKG and troponins are pending. I spoke with the hospitalist who will evaluate the patient later today for possible discharge if the above workup is negative. He should be discharged on these medicines. Prednisone 40mg PO through 04/14 Levaquin 750 mg PO through 04/16 Beta agonist, muscarinic antagonist and inhaled corticosteroids that insurance will cover for his asthma-COPD overlap (Trelegy 200/62.5/24 at 1 puffs Q day or Pedritotri 160/9/4.8 at 2 puffs BID) Daytime oxygen assessment per his facility Eliquis for PE at 10 BID X7 days and then 5 BID. I told the patient he could follow up with us in [facility]monary [facility] and I gave him our business card. He told me he would like to discuss this with his physicians at the facility. Call with any questions. (2) Pulmonary embolism: Code(s): I26.99 - Other pulmonary embolism without acute cor pulmonale Status: Acute Assessment and Plan: 04/11 To denies chest pain, hemoptysis or any active bleeding today. on 04/10 D Dimer positive and CTA demonstrated segmental PE in lingula, LLL, RML and RLL started on IV heparin drip. He also has apical predominant severe centrilobular and mild paraseptal emphysema. Mild enlargement of the pulmonary arteries. No focal infiltrates. No consolidations. No masses. I will obtain echocardiogram to assess for LV and RV function, and pulmonary pressures. I will obtain upper and lower extremity Dopplers looking for DVT. Patient has tolerated the IV heparin overnight with out any signs of active bleeding and I will discuss with the hospitalist conversion to a direct oral anticoagulant that his insurance will cover. 04/12 Upper and lower extremity dopplers negative for DVT. Echo with left ventricular systolic function 60-65, grade 1 diastolic dysf
--- NOTE | 2021-04-12 09:19 | PM.DS ---
DS: Admitting Diagnosis Discharge Date 04/12/21 Admitting Diagnosis COPD exacerbation, PE DS: Discharge Diagnosis Discharge Diagnosis (1) Asthma exacerbation in COPD: Code(s): J44.1 - Chronic obstructive pulmonary disease with (acute) exacerbation; J45.901 - Unspecified asthma with (acute) exacerbation Status: Acute Assessment and Plan: COPD exacerbation improving -continue steroids (now oral) and inhalers -patient has been placed on Levaquin due to severity of COPD exacerbation, continue with that -pulmonology consulted and I spoke with him about the plan of care. Plan to f/u outpt (2) Tobacco dependence: Code(s): F17.200 - Nicotine dependence, unspecified, uncomplicated Status: Acute Assessment and Plan: Nicotine patch as needed (3) Sinus tachycardia: Code(s): R00.0 - Tachycardia, unspecified Status: Acute Assessment and Plan: Resolved -could be due to lung disease and or PE -no chest pain -echo without wall motion abnormalities (4) Pulmonary embolism: Code(s): I26.99 - Other pulmonary embolism without acute cor pulmonale Status: Acute Assessment and Plan: Noted on CTA, no lower extremity or upper extremity DVTs -patient was placed on heparin drip and was transitioned to Eliquis day of d/c -H&H stable -no o2 requirements at d/c DS: Summary Hospital Course Hospital Course: Patient is a 80-year-old male who presented emergency room for shortness of breath and dry cough. Chest x-ray showed hyperexpansion of the lungs consistent with COPD with no acute cardiopulmonary disease. Patient was started on IV steroids and nebulizer treatments and was admitted to the hospitalist service. He continued to be tachycardic and required oxygen and a CTA was done which did show PEs. He was started on a heparin drip and did well with this. He was transition to Eliquis the day of discharge. Pulmonology was consulted and recommended the below medications at discharge and follow-up outpatient. The day of discharge the patient was feeling much better and felt to be close to his baseline. He was educated about the worrisome signs and symptoms come back to the emergency room for and was discharged stable condition. Please see above for further details Status at Discharge Functional status at discharge: independent ambulation Time Spent with Patient Time attestation: Total time spent providing and/or coordinating discharge services:38 min Exam Narrative: General: Underweight patient resting comfortably in bed in no acute distress playing solitaire HEENT: normocephalic Neck: supple Neuro: Alert and oriented x4 CV:RRR Resp: Wheezing and rhonchi bilaterally, improved since yesterday. No conversational dyspnea Abd: Soft, non distended. No pain to palpation. Positive bowel sounds Extremities: No swelling, erythema, or pain to palpation. Skin: Erythematous papular rash on the legs and arms that is blanchable DS: Data Data Completed and Pending Labs on day of discharge: Labs from last 24 hours 04/12/21 04/12/21 04/12/21 08:49 08:49 05:16 Hgb Hct APTT 97.7 H Troponin I Pending NT-Pro-B Natriuret Pep Pending 04/12/21 04/12/21 04/11/21 05:15 01:12 19:07 Hgb 12.7 L Hct 39.2 L APTT 93.7 H 100.3 H Troponin I NT-Pro-B Natriuret Pep 04/11/21 04/11/21 12:14 09:13 Hgb Hct APTT 63.0 H Troponin I < 0.012 NT-Pro-B Natriuret Pep 219 H Preliminary micro results at discharge 04/10/21 12:38 Sputum Culture - Preliminary Sputum Discharge Plan Discharge Attending physician on discharge: Lenin Nava Consulting providers: Matthew Saez ; Mahsa Perdomo ; Abi Steele Paul ; Heng, Rafe M. ; Erik Medley V. Discharging Clinician: Mahsa Perdomo Patient Disposition: [place] Longterm/Asst Living Activity: as tolerated Diet: heart healthy
[2021-04-12 09:31] LABS: Troponin I < 0.012 ng/mL (0.000-0.034)
[2021-04-12 09:44] LABS: NT Pro B Type Natriuretic Pept 410 pg/mL (5-100)
[2021-04-12] MEDS: APIXABAN 5 MG TABLET 10 MG PO ×2 (10:34→20:14)
[2021-04-12 12:04] LABS: Troponin I < 0.012 ng/mL (0.000-0.034)
[2021-04-12 15:36] LABS: Troponin I < 0.012 ng/mL (0.000-0.034)
[2021-04-12 16:11] LABS: EDCOVIDSCREEN Negative (Negative)
== END 2021-04-12 22:04 | DRG 190 ==
LOC: ANHED 20:59 → ANH2MED 21:27
PROVIDERS: Emergency Medicine; Internal Medicine Pulmonary Disease; Physician Assistant; Admitting Provider Internal Medicine; Emergency Provider Emergency Medicine; Visit Provider Internal Medicine
DX: J44.1 Chronic obstructive pulmonary disease with (acute) exacerbation (principal); I26.99 Other pulmonary embolism without acute cor pulmonale; J45.901 Unspecified asthma with (acute) exacerbation; Z20.822 Contact with and (suspected) exposure to COVID-19; D72.10 Eosinophilia, unspecified; H26.9 Unspecified cataract; R00.0 Tachycardia, unspecified; Z79.899 Other long term (current) drug therapy; Z87.891 Personal history of nicotine dependence
CPT/HCPCS: 36415; 36600; 71046; 71275; 80048; 80076; 82375; 82607; 82746; 82805; 83050; 83880; 84484; 85014; 85018; 85025; 85380; 85610; 85730; 86140; 87070; 87205; 87426; 93005; 93306; 93970; 94640; 94762; 96365; 96366; 96367; 96374; 96375; 96376; 97162; 97165; 99285; A9270; C9803; G0378; J1644; J1956; J2920; J2930; J3475; J7512; Q9967

== ENCOUNTER 2021-05-11 02:33 | Observation (INO) | payer MEDICARE, MEDICAID, SELFPAY ==
[2021-05-11] VITALS (20 sets, daily range): BP systolic 107–139; BP diastolic 59–78; PULSE 68–94; RESP 12–20; TEMP 36.6–36.7; O2SAT 90–100; BMI 21.9
--- NOTE | ~2021-05-11 | XR_ITS ---
EXAMINATION: XR chest 1V portable DATE: 05/11/2021 02:55 INDICATION: Shortness of breath. TECHNIQUE: A single frontal view of the chest was obtained. COMPARISON: Chest 2 views 04/09/2021, chest CT 04/10/2021 FINDINGS: There are lucencies in the lungs, consistent with emphysema. There is mild scarring at the lung apices. Calcified bilateral lung nodules are consistent with old granulomatous disease. There is mild atelectasis at the lung bases. No pleural effusion or pneumothorax. The heart size is normal. IMPRESSION: 1. Emphysema. 2. Mild atelectasis at the lung bases. Reviewed, dictated and finalized at location A.
--- NOTE | 2021-05-11 02:47 | ECG_ITS ---
Measurements Intervals [place] Rate: 80 P: 78 MO: 159 QRS: -39 QRSD: 89 T: 71 QT: 349 QTc: 405 Interpretive Statements SINUS RHYTHM LEFT AXIS DEVIATION INCOMPLETE RIGHT BUNDLE BRANCH BLOCK BASELINE ARTIFACT- I, II, III, AVF BORDERLINE ECG Electronically Signed On 05-11-2021 6:10:01 CDT by Eliud Bateman D.O.
--- NOTE | 2021-05-11 02:48 | ED.SOB ---
HPI - SOB/Dyspnea General Chief Complaint: Shortness of Breath/Dyspnea Stated Complaint: SOB Time Seen by Provider: 05/11/21 02:47 Source: patient Mode of arrival: EMS Limitations: no limitations History of Present Illness HPI Narrative: Patient is a 80-year-old male complaining of shortness of breath that started last night. Patient states that he has a history of COPD, on oxygen at night. Patient denies any chest pain, abdominal pain, nausea, vomiting, diaphoresis, fever or chills. Related Data Home Medications Medication Instructions Recorded Confirmed hydrocodone-acetaminophen 1 tablet PO Q4H PRN 04/09/21 04/09/21 nicotine 1 patch TRANSDERMAL DAILY 04/09/21 04/09/21 Allergies Allergy/AdvReac Type Severity Reaction Status Date / Time No Known Allergies Allergy Verified 05/11/21 03:05 Review of Systems Review of Systems: All systems reviewed & are unremarkable except as noted in HPI and below Constitutional: Constitutional: Denies body ache(s), Denies chills, Denies excessive sweating, Denies fatigue, Denies fever(s), Denies headache(s), Denies lethargy, Denies malaise, Denies weakness and Denies weight loss Eyes: Eyes: Denies blurry vision, Denies change in vision and Denies loss of vision ENT: Denies dizziness, Denies ear discharge, Denies headache(s), Denies lip swelling, Denies epistaxis, Denies nasal congestion, Denies neck pain, Denies throat swelling and Denies tongue swelling Cardiovascular: Cardiovascular: Denies chest pain, Denies chest pain at rest, Denies chest pain with activity, Denies diaphoresis, Denies rapid heart rate, Denies edema, Denies irregular heart rhythm, Denies lightheadedness and Denies palpitations Respiratory: Respiratory: Denies chest congestion, Reports cough, Denies hemoptysis and Reports dyspnea Gastrointestinal: Gastrointestinal: Denies abdominal pain, Denies melena, Denies hematochezia, Denies diarrhea, Denies nausea, Denies vomiting and Denies hematemesis Musculoskeletal: Musculoskeletal: Denies abnormal gait, Denies deformity, Denies joint swelling, Denies limited range of motion, Denies neck pain and Denies numbness Neurologic: Denies Abnormal speech present, Denies abnormal gait, Denies confusion, Denies dizziness, Denies headache(s), Denies focal weakness, Denies loss of vision, Denies numbness, Denies Other visual disturbances, Denies Sensory deficit (Neuro) and Denies weakness Psychiatric: Psychiatric: Denies confusion, Denies depression, Denies auditory hallucinations, Denies homicidal ideation and Denies suicidal ideation Endocrine: Endocrine: Denies cold intolerance, Denies excessive sweating, Denies fatigue, Denies heat intolerance and Denies palpitations Hematologic/Lymphatic: Hematologic/Lymphatic: Denies easy bleeding and Denies easy bruising Allergic/Immunologic: Allergic/Immunologic: Denies lip swelling, Denies throat swelling and Denies tongue swelling PMFSH Past Medical History Medical History (Updated 05/11/21 @ 04:07 by Rey Carmichael MD) Asthma Cataract already seeing senior principal process engineer Cataract, left eye Cataract, right eye COPD (chronic obstructive pulmonary disease) Encounter for long-term (current) use of other medications Heart disease Family History Family History Father Diabetes mellitus Sibling Kidney disease Social History Social History Smoking packs per day: 1 Smoking cigarettes per day: 20.0 Years smoked: 64 Smoking pack-years: 64.00 Smoking status: Former smoker Tobacco type: cigarettes Second hand tobacco smoke exposure: Yes Alcohol intake: never Substance use: never Substance use type: does not use Spiritual care concerns: No Exam Const: General: ill appearing Orientation/consciousness: oriented to person, oriented to place, oriented to time, patient oriented x3 and No confusion
[2021-05-11] MEDS: methylPREDNISolone SOD SUCC 125 MG VIAL IV PUSH (03:05)
[2021-05-11 03:11] LABS: Basophils Absolute Auto 0.1 K/mm3 (0.0-0.1); Basophils Percent Auto 1.7 % (0.2-1.2); Eosinophils Absolute Auto 1.4 K/mm3 (0-0.3); Eosinophils Percent Auto 17.9 % (0-4.4); Hematocrit 38.9 % (42.0-52.0); Hemoglobin 12.9 g/dL (14.0-18.0); Immature Granulocyte Absolute 0.04 K/mm3 (0.00-0.031); Immature Granulocyte Percent A 0.5 % (0-0.5); Lymphocytes Absolute Auto 2.03 K/mm3 (0.9-3.2); Lymphocytes Percent Auto 25.9 % (18.3-44.2); Mean Corpuscular HGB Conc 33.2 g/dl (32-36); Mean Corpuscular Hemoglobin 33.3 pg (26-34); Mean Corpuscular Volume 100.5 fl (80-100); Mean Platelet Volume 9.9 fl (7.4-10.4); Monocytes Absolute Auto 0.8 K/mm3 (0.1-0.6); Monocytes Percent Auto 9.6 % (2.6-8.5); Neutrophils Absolute Auto 3.5 K/mm3 (1.3-6.7); Neutrophils Percent Auto 44.4 % (45.5-73.1); Platelet Count Result 322 k/mm3 (150-375); Red Blood Count 3.87 M/mm3 (4.6-6.20); Red Cell Distribution Width 14.8 % (11.5-14.5); White Blood Count 7.8 K/mm3 (4.5-10.0)
[2021-05-11 03:12] LABS: Alveolar/Arterial O2 Gradient 37.5 mmHg; Base Excess ABG -0.6 mEq/l (+/-2.0); Fractional Inspired Oxygen 21 %; HCO3 ABG 23.8 mEq/l (22.0-26.0); Oxygen Content ABG 16.9 %vol (16.0-22.0); Oxygen Saturation ABG 93.4 % (95.0-100.0); Oxyhemoglobin 91.1 % THb (90.0-100.0); PCO2 ABG 38.4 mmHg (35.0-45.0); PO2 ABG 66.2 mmHg (80.0-100.0); PO2 FiO2 Ratio Arterial Blood 3.15 %; Total Hemoglobin 13.2 g/dL (12.0-18.0)
[2021-05-11 03:13] LABS: Device ROOM AIR; Modified Allen's Test Pass; Site Drawn RIGHT RADIAL
[2021-05-11] MEDS: ALBUTEROL SULFATE NEB 2.5 MG/0.5 ML INH 5 MG INHALATION ×4 (03:17→18:43)
[2021-05-11] MEDS: IPRATROPIUM BR 0.02% INH SOLN 0.5 MG/2.5 ML VIAL INHALATION ×4 (03:17→18:43)
[2021-05-11 03:22] LABS: INR 1.2; Prothrombin Time 14.7 Seconds (11.1-14.7)
--- NOTE | 2021-05-11 04:28 | PC.NURSE ---
Called lab and spoke with Emmy to follow up on pts redraw chemistry. She states she will send it soon
[2021-05-11 04:30] LABS: Anion Gap 7 mmol/L (8-16); Blood Urea Nitrogen 20 mg/dL (9-20); Calcium 9.3 mg/dL (8.4-10.2); Carbon Dioxide 26 mmol/L (22-30); Chloride 107 mmol/L (98-107); Estimated CRCL calculation 68 ml/min; Estimated Glomerular Filt Rate > 60; Glucose 100 mg/dL (65-110); NT Pro B Type Natriuretic Pept 92 pg/mL (5-100); Potassium 4.8 mmol/L (3.4-5.0); Sodium 140 mmol/L (137-145); Troponin I < 0.012 ng/mL (0.000-0.034)
--- NOTE | 2021-05-11 05:30 | PM.IMHP ---
H&P: HPI History of Present Illness Date/Time: 05/11/21 05:30 Chief Complaint: shortness of breath Narrative: Patient is a 80-year-old male who presents to the ed today with increasing shortness of breath since yesterdday. he reports that he has been having cough without expectoration. no fever, chills. no chest pain. hehas hx of COPD and wears oxygen only at night. he uses inhalers and nebulizers. he was quite wheezy on presentation which has now improved but not quite back to his baseline. admission for obsservation was suggested. he is a ID resident. Review of Systems Review of Systems: - CONSTITUTIONAL: Denies weight loss, fever and chills. - HEENT: Denies changes in vision and hearing - RESPIRATORY: reports SOB and cough. - CV: Denies palpitations and CP. - GI: Denies abdominal pain, nausea, vomiting and diarrhea. - : Denies dysuria and urinary frequency. - MSK: Denies myalgia and joint pain. - SKIN: Denies rash and pruritus. - NEUROLOGICAL: Denies headache and syncope. - PSYCHIATRIC: Denies recent changes in mood. Denies anxiety and depression. All systems reviewed & are unremarkable except as noted in HPI and below Constitutional: Constitutional: Reports fatigue and Reports weakness Neurologic: Reports weakness Endocrine: Endocrine: Reports fatigue PMFSH Past Medical History Medical History (Updated 05/11/21 @ 05:43 by Nico Moulton MD) Asthma Cataract already seeing bleach boiler packer Cataract, left eye Cataract, right eye COPD (chronic obstructive pulmonary disease) Encounter for long-term (current) use of other medications Heart disease Family History Family History Father Diabetes mellitus Sibling Kidney disease Social History Social History Smoking packs per day: 1 Smoking cigarettes per day: 20.0 Years smoked: 64 Smoking pack-years: 64.00 Smoking status: Former smoker Tobacco type: cigarettes Second hand tobacco smoke exposure: Yes Alcohol intake: never Substance use: never Substance use type: does not use Spiritual care concerns: No Meds Home Medications and Allergies Home Medications Medication Instructions Recorded Confirmed Type hydrocodone-acetaminophen 1 tablet PO Q4H PRN 04/09/21 04/09/21 History nicotine 1 patch TRANSDERMAL DAILY 04/09/21 04/09/21 History apixaban [Eliquis] 5 mg PO DIRECTED #68 tablet 04/12/21 Rx wxaeuekuvud-[id number]-kncuiqod 1 inh INHALATION DAILY #60 ea 04/12/21 Rx [Trelegy Ellipta] ipratropium-albuterol 3 ml INHALATION Q6H PRN #180 ml 04/12/21 Rx levofloxacin 750 mg PO DAILY 4 Days #4 tablet 04/12/21 Rx prednisone 40 mg PO DAILY 2 Days #4 tablet 04/12/21 Rx Allergies Allergy/AdvReac Type Severity Reaction Status Date / Time No Known Allergies Allergy Verified 05/11/21 03:05 Vital Signs Vital Signs - 24 hr 05/11/21 02:35 05/11/21 02:49 05/11/21 03:10 Temperature 97.9 F Pulse Rate 77 72 Respiratory Rate 19 16 Blood Pressure 136/78 Pulse Oximetry 96 96 05/11/21 03:20 05/11/21 03:25 05/11/21 03:32 Temperature Pulse Rate 74 74 Respiratory Rate 16 18 Blood Pressure 139/75 Pulse Oximetry 98 98 Exam Narrative: GENERAL: The patient is thin built, not in acute distress HEENT: Nonicteric sclerae, PERRLA, EOMI. Oropharynx clear. Moist mucous membranes. Conjunctivae appear well perfused. CHEST: Chest wall is nontender. HEART: Regular rate and rhythm without murmur, rubs, or gallops LUNGS: decreased breath sounds bilaterally. no respiratory distress, no wheezes or crackles heard ABDOMEN: Soft, positive bowel sounds, non-tender, no organomegaly. SKIN: No rash, no excessive bruising, petechiae, or purpura. NEUROLOGIC: Cranial nerves II-XII intact, alert and oriented x 3, no gross motor deficits EXTREMITIES: no edema, cyanosis or clubbing Extrem: Gener
[2021-05-11] MEDS: levoFLOXacin 500 MG/D5W 100 ML 500 MG/100 ML BAG 100 MG IVPB (06:29)
--- NOTE | 2021-05-11 06:35 | ADMGEN ---
This patient, Rey Cole, was admitted to [facility] Surg Room 317-02. Patient/family oriented to hospital policies and general routines including ID bracelet, bed and alarms, visiting hours, pain management, procedures, bathroom and other care routines, personal items, smoking policy, room service/diet, and visiting hours. Information on how to activate the Rapid Response Team has been discussed. Patient/Family are encouraged to report perceived risks to care and to ask questions if they do not understand what they are told or what they should do.
[2021-05-11] MEDS: methylPREDNISolone SOD SUCC 40 MG VIAL IV PUSH ×2 (09:03→17:25)
[2021-05-11] MEDS: APIXABAN 5 MG TABLET PO ×2 (09:03→21:08)
--- NOTE | 2021-05-11 11:09 | PM.IMPN ---
Progress Note: A&P Assessment and Plan (1) Acute exacerbation of chronic obstructive airways disease: Code(s): J44.1 - Chronic obstructive pulmonary disease with (acute) exacerbation Status: Acute Assessment and Plan: Presented with increased wheezing, consistent with COPD exacerbation Continue Solu-Medrol 40 mg IV b.i.d. Albuterol and ipratropium nebs q.6 IV Levaquin Resume home Trelegy Ellipta Currently requiring 2 L per supplemental nasal cannula (2) Pulmonary embolism: Code(s): I26.99 - Other pulmonary embolism without acute cor pulmonale Status: Acute Assessment and Plan: Onset approximately 1 month ago, managed at this facility Continue with p.o. Eliquis b.i.d. (3) Acute and chronic respiratory failure with hypoxia: Code(s): J96.21 - Acute and chronic respiratory failure with hypoxia Status: Acute Assessment and Plan: Mildly hypoxemic based on ABG at presentation. He is maintaining adequate oxygen saturations on 2 L per nasal cannula Continue supplemental O2 as needed with goal saturation 90% or above. Wean to goal. He reports he has access to on O2 tank at his nursing facility and wears oxygen intermittently when he feels short of breath. (4) Colostomy in place: Code(s): Z93.3 - Colostomy status Status: Acute Assessment and Plan: He has colostomy in place with no issues Patient and correction staff unable to provide any information regarding indications for this. Patient reports he has had for approximately 6 months and states was placed in [place], [place]. No further information obtainable. Does not appear to be any issues at this time. Subjective Date/time seen: 05/11/21 11:09 Interval history: Date of service: 05/11/2021 Rey Cole is a 80-year-old male with a history of asthma, COPD, CAD, and recent PE approximately 1 month ago now on chronic anticoagulation who is seen in follow-up for COPD exacerbation. He is starting to feel little better today. He still states his breathing is ?not good? and he feels very tired. He endorses a nonproductive cough. He says he can occasionally hear himself wheezing. He denies chest pain or palpitations. Denies NELSON. No orthopnea or PND. No nausea, vomiting, fever, chills, abdominal pain. No issues with his colostomy bag. Appetite has been pretty good. Denies dizziness, lightheadedness, or weakness. Denies swelling of his extremities. Denies difficulty with urination. Review of Systems Review of Systems: All systems reviewed & are unremarkable except as noted in HPI and below Exam Narrative: Mr. Douglas eckert is thin, frail 80-year-old male who is lying supine in bed. He appears comfortable and is in NARD. Neuro: awake, alert and oriented x4, speech clear, no focal neuro deficits noted HEENMT: normocephalic, atraumatic, EOMI, sclerae anicteric, moist oral mucosa Neck: supple, no lymphadenopathy Respiratory: Diminished breath sounds bilaterally without crackles, rhonchi, or wheezing, nonlabored breathing, no conversational dyspnea Cardio: regular rate, regular rhythm with S1-S2 Abdomen: nondistended, normoactive bowel sounds, soft, nontender to palpation, colostomy in place with brown stool Extremities: no edema, erythema, or tenderness to palpation, DP pulses 2+ bilaterally Skin: no rashes or lesions, warm and dry Psych: appropriate mood and affect, judgment and insight intact Objective Data Vital Signs Vital Signs: Vital Signs - 24 hr 05/11/21 02:35 05/11/21 02:49 05/11/21 03:10 Temperature 97.9 F Pulse Rate 77 72 Respiratory Rate 19 16 Blood Pressure 136/78 Pulse Oximetry 96 96 05/11/21 03:20 05/11/21 03:25 05/11/21 03:32 Temperature Pulse Rate 74 74 Respiratory Rate 16 18 Blood Pressure 139/75 Pulse Oximetry 98 98 05/11/21 05:35 05/11/21 06:10 05/11/21 06:15 Temperature 97.9 F Pulse Rate 94 80 87 Respiratory R
[2021-05-12] VITALS (20 sets, daily range): BP systolic 106–132; BP diastolic 50–74; PULSE 60–106; RESP 18–22; TEMP 36.4–36.8; O2SAT 92–99
[2021-05-12] MEDS: IPRATROPIUM BR 0.02% INH SOLN 0.5 MG/2.5 ML VIAL INHALATION ×4 (02:49→20:55)
[2021-05-12] MEDS: ALBUTEROL SULFATE NEB 2.5 MG/0.5 ML INH 5 MG INHALATION ×3 (02:49→14:33)
[2021-05-12] MEDS: levoFLOXacin 500 MG/D5W 100 ML 500 MG/100 ML BAG 100 MG IVPB (05:24)
[2021-05-12 06:44] LABS: Hematocrit 34.9 % (42.0-52.0); Hemoglobin 11.6 g/dL (14.0-18.0); Mean Corpuscular HGB Conc 33.2 g/dl (32-36); Mean Corpuscular Hemoglobin 32.5 pg (26-34); Mean Corpuscular Volume 97.8 fl (80-100); Mean Platelet Volume 10.2 fl (7.4-10.4); Platelet Count Result 341 k/mm3 (150-375); Red Blood Count 3.57 M/mm3 (4.6-6.20); Red Cell Distribution Width 14.3 % (11.5-14.5); White Blood Count 14.5 K/mm3 (4.5-10.0)
[2021-05-12 06:52] LABS: Anion Gap 6 mmol/L (8-16); Blood Urea Nitrogen 20 mg/dL (9-20); Calcium 8.8 mg/dL (8.4-10.2); Carbon Dioxide 23 mmol/L (22-30); Chloride 109 mmol/L (98-107); Estimated CRCL calculation 65 ml/min; Estimated Glomerular Filt Rate > 60; Glucose 146 mg/dL (65-110); Potassium 4.1 mmol/L (3.4-5.0); Sodium 138 mmol/L (137-145)
[2021-05-12] MEDS: APIXABAN 5 MG TABLET PO ×2 (08:28→20:03)
[2021-05-12] MEDS: methylPREDNISolone SOD SUCC 40 MG VIAL IV PUSH (08:28)
[2021-05-12] MEDS: FLUTICASONE/UMECLIDIN/VILANTER 200-62.5-25 MCG ELLIPTA 1 PUFF INHALATION (10:06)
--- NOTE | 2021-05-12 14:35 | PM.IMPN ---
Progress Note: A&P Assessment and Plan (1) Acute exacerbation of chronic obstructive airways disease: Code(s): J44.1 - Chronic obstructive pulmonary disease with (acute) exacerbation Status: Acute Assessment and Plan: Presented with increased wheezing, consistent with COPD exacerbation; improving Transition to p.o. prednisone 50 mg for tomorrow Albuterol and ipratropium nebs q.6 Continue IV Levaquin Continue Trelegy Ellipta Currently requiring 2 L per supplemental nasal cannula but is maintaining sats >98% and therefore this can be weaned (2) Pulmonary embolism: Code(s): I26.99 - Other pulmonary embolism without acute cor pulmonale Status: Acute Assessment and Plan: Onset approximately 1 month ago, managed at this facility Continue with p.o. Eliquis b.i.d. (3) Acute and chronic respiratory failure with hypoxia: Code(s): J96.21 - Acute and chronic respiratory failure with hypoxia Status: Acute Assessment and Plan: Mildly hypoxemic based on ABG at presentation. He is maintaining adequate oxygen saturations on 2 L per nasal cannula Continue supplemental O2 as needed with goal saturation 90% or above. Wean to goal. He reports he has access to on O2 tank at his nursing facility and wears oxygen intermittently when he feels short of breath. (4) Colostomy in place: Code(s): Z93.3 - Colostomy status Status: Acute Assessment and Plan: He has colostomy in place with no issues Patient and retirement staff unable to provide any information regarding indications for this. Patient reports he has had for approximately 6 months and states was placed in [place], [place]. No further information obtainable. Does not appear to be any issues at this time. (5) Rash: Code(s): R21 - Rash and other nonspecific skin eruption Status: Acute Assessment and Plan: Faint pink macular eruption on bilateral anterior knees and shins, not present on my evaluation yesterday but evident on exam today. Etiology for this is not clear. Possibly related to medication reaction. Possibly IV Levaquin, though he had this medication last month without any documented issues. Supportive care to include pepcid and benadryl. He is already on systemic steroids which will be continued Subjective Date/time seen: 05/12/21 14:35 Interval history: Date of service: 05/12/2021 Rey Cole is a 80-year-old male with a history of asthma, COPD, CAD, and recent PE approximately 1 month ago now on chronic anticoagulation who is seen in follow-up for COPD exacerbation. He is feeling better today. His shortness of breath is improving. He denies NELSON. He denies wheezing. No orthopnea or PND. He endorses cough productive of clear sputum. He denies nausea, vomiting, fever, chills, dizziness, lightheadedness. No chest pain or palpitations. No abdominal pain. Reports good appetite. Denies urinary symptoms. Reports regular bowel movements. He has a rash on his lower legs. He does not bring this up to me, but when I question him about a, he tells me that it sometimes itches. He is a poor historian and not able to provide many details about this. I asked me if he has had this before and he told me he has had it for years but then later told me he has never had something like this before and that it is new. He states it has not spread anywhere but has been itching at his arms to, although no rashes noted on his upper extremities. Review of Systems Review of Systems: All systems reviewed & are unremarkable except as noted in HPI and below Exam Narrative: Mr. Cole is is thin, frail 80-year-old male who is sitting in a chair watching a movie He appears comfortable and is in NARD. Neuro: awake, alert and oriented x4, speech clear, no focal neuro deficits noted HEENMT: normocephalic, atraumatic, EOMI, sclerae anicteric, moist oral mucosa Neck: solomon
[2021-05-12] MEDS: FAMOTIDINE 20 MG TABLET PO ×2 (16:17→20:03)
[2021-05-12] MEDS: ALBUTEROL SULFATE NEB 2.5 MG/0.5 ML INH (20:54)
[2021-05-13] VITALS (12 sets, daily range): BP systolic 127–133; BP diastolic 58–63; PULSE 70–80; RESP 14–18; TEMP 36.9–37; O2SAT 93–94
[2021-05-13] MEDS: ALBUTEROL SULFATE NEB 2.5 MG/0.5 ML INH 5 MG INHALATION ×3 (03:15→14:28)
[2021-05-13] MEDS: IPRATROPIUM BR 0.02% INH SOLN 0.5 MG/2.5 ML VIAL INHALATION ×3 (03:16→14:28)
[2021-05-13] MEDS: levoFLOXacin 500 MG/D5W 100 ML 500 MG/100 ML BAG 100 MG IVPB (05:05)
[2021-05-13 06:34] LABS: Hematocrit 35.7 % (42.0-52.0); Hemoglobin 11.9 g/dL (14.0-18.0); Mean Corpuscular HGB Conc 33.3 g/dl (32-36); Mean Corpuscular Hemoglobin 32.5 pg (26-34); Mean Corpuscular Volume 97.5 fl (80-100); Mean Platelet Volume 10.2 fl (7.4-10.4); Platelet Count Result 351 k/mm3 (150-375); Red Blood Count 3.66 M/mm3 (4.6-6.20); Red Cell Distribution Width 14.6 % (11.5-14.5); White Blood Count 12.2 K/mm3 (4.5-10.0)
[2021-05-13 06:43] LABS: Anion Gap 7 mmol/L (8-16); Blood Urea Nitrogen 24 mg/dL (9-20); Calcium 8.5 mg/dL (8.4-10.2); Carbon Dioxide 25 mmol/L (22-30); Chloride 108 mmol/L (98-107); Estimated CRCL calculation 58 ml/min; Estimated Glomerular Filt Rate > 60; Glucose 105 mg/dL (65-110); Potassium 3.6 mmol/L (3.4-5.0); Sodium 140 mmol/L (137-145)
[2021-05-13] MEDS: FLUTICASONE/UMECLIDIN/VILANTER 200-62.5-25 MCG ELLIPTA 1 PUFF INHALATION (08:18)
[2021-05-13] MEDS: predniSONE 40 MG, predniSONE 10 MG 50 MG PO (08:44)
[2021-05-13] MEDS: APIXABAN 5 MG TABLET PO (08:44)
[2021-05-13] MEDS: FAMOTIDINE 20 MG TABLET PO (08:44)
--- NOTE | 2021-05-13 12:53 | PM.DS ---
DS: Admitting Diagnosis Discharge Date 05/13/2021 Admitting Diagnosis COPD exacerbation DS: Discharge Diagnosis Discharge Diagnosis (1) Acute exacerbation of chronic obstructive airways disease: Code(s): J44.1 - Chronic obstructive pulmonary disease with (acute) exacerbation Status: Acute Assessment and Plan: Presented with increased wheezing, consistent with COPD exacerbation Treated with IV Solu-Medrol that was weaned to p.o. prednisone. He will continue prednisone 50 mg to complete a 5 day course. Received Albuterol and ipratropium nebs q.6 during hospitalization. Started on IV Levaquin and will continue with p.o. Levaquin to complete a 5 day course. Continue Trelegy Ellipta and DuoNebs at facility He did require up to 2 L supplemental O2 per nasal cannula which was able to be weaned. Continue to monitor O2 sats and titrate O2 as per facility protocol at his [facility] He was admitted 1 month ago also with COPD exacerbation and was evaluated by pulmonology at that time. Instructed to have outpatient pulmonology follow-up but was not able to do so prior to this admission. I again encouraged him to follow up with pulmonology outpatient. (2) Pulmonary embolism: Code(s): I26.99 - Other pulmonary embolism without acute cor pulmonale Status: Acute Assessment and Plan: Admitted 1 month ago at this facility and found to have new onset PE. Started on anticoagulation which he continues. Venous Dopplers negative at that time. Continue Eliquis 5 mg b.i.d. (3) Acute and chronic respiratory failure with hypoxia: Code(s): J96.21 - Acute and chronic respiratory failure with hypoxia Status: Acute Assessment and Plan: Mildly hypoxemic based on ABG at presentation. O2 sats remained stable with supplemental O2 which was able to be weaned. He reports he has access to O2 tank at his nursing facility and wears oxygen intermittently when he feels short of breath. O2 should be titrated per facility protocol. (4) Colostomy in place: Code(s): Z93.3 - Colostomy status Status: Acute Assessment and Plan: Patient and [facility] staff unable to provide any information regarding indications for this. Patient reports he has had for approximately 6 months and states was placed in [place], [place] after having an abdominal surgery which he cannot elaborate on. No further information obtainable. No issues with colostomy during hospitalization. (5) Rash: Code(s): R21 - Rash and other nonspecific skin eruption Status: Acute Assessment and Plan: Noticed a faint pink, blanchable macular eruption on bilateral anterior knees and shins initially noticed on evaluation on 05/12/2021. Nonpruritic. Etiology for this unclear. Possibly related to medication reaction, though he had been on the same medication regimen at previous hospitalization 1 month ago. Rash improved significantly with Pepcid and Benadryl. He was was already on systemic steroids which have been continued as above. Instructed to contact PCP or seek medical care if he develops additional rash or allergic reaction symptoms which were discussed. DS: Summary Hospital Course Hospital Course: Date of admission: 05/11/2021 Date of discharge: 05/13/2021 Rey Cole is a 80-year-old male with a history of asthma, COPD, CAD, and recent PE approximately 1 month ago now on chronic anticoagulation who presented to the emergency department from his [facility] on 05/11/2021 with complaints of increased shortness of breath ongoing for 1 day. On presentation to the emergency department, his vital signs were stable, he was afebrile, H&H slightly decreased with additional CBC and BMP unremarkable, troponin negative, ABG demonstrated mild hypoxemia, and CXR showed emphysema with mild atelectasis of the lung bases. He was admitted to the hospitalist service for further evaluation and management. Rianna
== END 2021-05-13 15:10 ==
LOC: ANHED 04:07 → ANH3MEDSUR 05:37
PROVIDERS: Physician Assistant; Admitting Provider Internal Medicine; Emergency Provider Emergency Medicine; PCP Internal Medicine; Visit Provider Internal Medicine
DX: J44.1 Chronic obstructive pulmonary disease with (acute) exacerbation (principal); I26.99 Other pulmonary embolism without acute cor pulmonale; J96.21 Acute and chronic respiratory failure with hypoxia; J45.909 Unspecified asthma, uncomplicated; R21 Rash and other nonspecific skin eruption; Z99.81 Dependence on supplemental oxygen; Z79.899 Other long term (current) drug therapy; Z87.891 Personal history of nicotine dependence; Z79.01 Long term (current) use of anticoagulants; Z93.3 Colostomy status
CPT/HCPCS: 36415; 36600; 71045; 80048; 82805; 83880; 84484; 85025; 85027; 85610; 85730; 93005; 94640; 96365; 96366; 96374; 96375; 96376; 97161; 97165; 99285; A9270; G0378; J1956; J2920; J2930; J7512

== ENCOUNTER 2021-08-31 16:04 | Inpatient (IN) | payer OTHER, SELFPAY ==
[2021-08-31] VITALS (20 sets, daily range): BP systolic 107–192; BP diastolic 66–110; PULSE 75–120; RESP 15–28; TEMP 36.4–37; O2SAT 84–98; BMI 23.1
--- NOTE | ~2021-08-31 | CT_ITS ---
EXAMINATION: CT abdomen pelvis w con DATE: 08/31/2021 18:18 INDICATION: Abdominal pain. Vomiting. TECHNIQUE: Computed tomography (CT) of the abdomen and pelvis was performed with 100 mL Omnipaque 350 intravenous contrast. Automated exposure control and iterative reconstruction technique were employe d. The dose-length product was 348.23 mGy-cm. COMPARISON: Chest CT 04/10/2021 FINDINGS: The visualized portions of the lung bases demonstrate emphysema. No pleural effusion. The h eart size is normal. No pericardial effusion. There is a small sliding hernia. There is wall thickeni ng of the distal esophagus and proximal stomach. There are cysts in the liver measuring up to 9 mm. C alcifications in the spleen are consistent with old granulomatous disease. The gallbladder, pancreas, and adrenal glands are normal. There are cysts in the kidneys measuring up to 11 mm on the right. Th e bladder is distended. The prostate is mildly enlarged. There is a Sridhar pouch. There is an end c olostomy in left abdomen. There are no dilated loops of bowel. The appendix is not visualized. There are no pathologically enlarged lymph nodes. There is no free intraperitoneal fluid. There is mild lum bar spondylosis. IMPRESSION: 1. Small sliding hiatal hernia. 2. Wall thickening of the distal esophagus and proximal stomach, which may be inflammation. Malignanc y cannot be excluded. Consider endoscopy. 3. Severe emphysema. Reviewed, dictated and finalized at location E. [facility] IMPRESSION: 1. Small sliding hiatal hernia. 2. Wall thickening of the distal esophagus and proximal stomach, which may be i nflammation. Malignancy cannot be excluded. Consider endoscopy. 3. Severe emphysema.
--- NOTE | ~2021-08-31 | XR_ITS ---
XR chest 2V DATE: 08/31/2021 16:34 INDICATION: Left chest pain for 3 days TECHNIQUE: AP and lateral views COMPARISON: 05/11/2021 portable AP chest 04/10/2021 CT pulmonary scan FINDINGS: Normal heart size. The central pulmonary arteries are prominent, consistent with pulmonary hypertension. The lungs are h yperinflated, consistent with COPD. 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 Mild bibasilar atelectasis or fibrotic change. No pulmonary infiltrate or consolidation, pleural effu lianna or pulmonary vascular congestion or pneumothorax is detected. IMPRESSION: COPD with pulmonary hypertension Mild bibasilar atelectasis or fibrotic change; otherwise no active pulmonary disease Osteopenia Reviewed, dictated and finalized at location A. IRATORY THERAPIST IMPRESSION: COPD with pulmonary hypertension Mild bibasilar atelectasis or fibrotic change; otherwise no active pulmonary di sease Osteopenia
--- NOTE | 2021-08-31 16:14 | ECG_ITS ---
Measurements Intervals [place] Rate: 75 P: -9 GA: 166 QRS: 54 QRSD: 96 T: -18 QT: 370 QTc: 414 Interpretive Statements SINUS RHYTHM INCOMPLETE RIGHT BUNDLE BRANCH BLOCK BORDERLINE R WAVE PROGRESSION, ANTERIOR LEADS MINIMAL Q WAVES- INFERIOR LEADS ST-T WAVE ABNORMALITY IN INFERIOR LEADS- CONSIDER ISCHEMIA BASELINE ARTIFACT- I, II, III, AVF, V5 ABNORMAL ECG Electronically Signed On 08-31-2021 16:17:48 INFORMATION TECHNOLOGY SECURITY MANAGER by Eliud Bateman D.O.
[2021-08-31 16:33] LABS: Basophils Absolute Auto 0.1 K/mm3 (0.0-0.1); Eosinophils Absolute Auto 2.8 K/mm3 (0-0.3); Eosinophils Percent Auto 26.3 % (0-4.4); Hematocrit 41.7 % (42.0-52.0); Hemoglobin 13.9 g/dL (14.0-18.0); Immature Granulocyte Absolute 0.03 K/mm3 (0.00-0.031); Immature Granulocyte Percent A 0.3 % (0-0.5); Lymphocytes Absolute Auto 2.24 K/mm3 (0.9-3.2); Lymphocytes Percent Auto 21.4 % (18.3-44.2); Mean Corpuscular HGB Conc 33.3 g/dl (32-36); Mean Corpuscular Hemoglobin 32.2 pg (26-34); Mean Corpuscular Volume 96.5 fl (80-100); Monocytes Absolute Auto 0.6 K/mm3 (0.1-0.6); Neutrophils Absolute Auto 4.7 K/mm3 (1.3-6.7); Platelet Count Result 270 k/mm3 (150-375); Red Blood Count 4.32 M/mm3 (4.6-6.20); Red Cell Distribution Width 16.2 % (11.5-14.5); White Blood Count 10.5 K/mm3 (4.5-10.0)
[2021-08-31 16:42] LABS: Alanine Aminotransferase 10 U/L (4-50); Albumin Level 3.8 g/dL (3.5-5.1); Alkaline Phosphatase 85 U/L (38-126); Anion Gap 4 mmol/L (8-16); Aspartate Amino Transferase 21 U/L (17-59); Bilirubin,Total 0.5 mg/dL (0.2-1.3); Blood Urea Nitrogen 16 mg/dL (9-20); Calcium 9.2 mg/dL (8.4-10.2); Carbon Dioxide 27 mmol/L (22-30); Chloride 106 mmol/L (98-107); Estimated CRCL calculation 59 ml/min; Estimated Glomerular Filt Rate > 60; Glucose 102 mg/dL (65-110); Lipase 91 U/L (23-300); Potassium 4.1 mmol/L (3.4-5.0); Sodium 137 mmol/L (137-145)
[2021-08-31] MEDS: ASPIRIN 81 MG CHEWABLE TABLET 324 MG PO (16:45)
--- NOTE | 2021-08-31 16:51 | ED.CHESTPAIN ---
HPI - Chest Pain General Chief Complaint: Chest Pain Stated Complaint: CP Time Seen by Provider: 08/31/21 16:28 Source: patient Mode of arrival: ambulatory Limitations: no limitations History of Present Illness HPI narrative: Patient is a 81-year-old male complaining of chest pain, left chest wall, radiating to left shoulder, was 7 out of 10, currently down to 1 out of 10 started approximately 1 week ago. Patient admits to being short of breath but that is because of his COPD and it is nothing new. Patient denies any abdominal pain, nausea, vomiting, diaphoresis, fever or chills. Related Data Home Medications Medication Instructions Recorded Confirmed hydrocodone-acetaminophen 1 tablet PO Q4H PRN 04/09/21 05/11/21 rivaroxaban [Xarelto] 20 mg PO DAILY 08/31/21 Allergies Allergy/AdvReac Type Severity Reaction Status Date / Time No Known Allergies Allergy Verified 08/31/21 16:15 Review of Systems Review of Systems: All systems reviewed & are unremarkable except as noted in HPI and below Constitutional: Constitutional: Denies body ache(s), Denies chills, Denies excessive sweating, Denies fatigue, Denies fever(s), Denies headache(s), Denies lethargy, Denies malaise, Denies weakness and Denies weight loss Eyes: Eyes: Denies blurry vision, Denies change in vision and Denies loss of vision ENT: Denies dizziness, Denies ear discharge, Denies headache(s), Denies lip swelling, Denies epistaxis, Denies nasal congestion, Denies neck pain, Denies throat swelling and Denies tongue swelling Cardiovascular: Cardiovascular: Denies diaphoresis, Denies rapid heart rate, Denies edema, Denies irregular heart rhythm, Denies lightheadedness and Denies palpitations Respiratory: Respiratory: Denies chest congestion, Denies cough and Denies hemoptysis Gastrointestinal: Gastrointestinal: Denies abdominal pain, Denies melena, Denies hematochezia, Denies diarrhea, Denies nausea, Denies vomiting and Denies hematemesis Musculoskeletal: Musculoskeletal: Denies abnormal gait, Denies deformity, Denies joint swelling, Denies limited range of motion, Denies neck pain and Denies numbness Neurologic: Denies Abnormal speech present, Denies abnormal gait, Denies confusion, Denies dizziness, Denies headache(s), Denies focal weakness, Denies loss of vision, Denies numbness, Denies Other visual disturbances, Denies Sensory deficit (Neuro) and Denies weakness Psychiatric: Psychiatric: Denies confusion, Denies depression, Denies auditory hallucinations, Denies homicidal ideation and Denies suicidal ideation Endocrine: Endocrine: Denies cold intolerance, Denies excessive sweating, Denies fatigue, Denies heat intolerance and Denies palpitations Hematologic/Lymphatic: Hematologic/Lymphatic: Denies easy bleeding and Denies easy bruising Allergic/Immunologic: Allergic/Immunologic: Denies lip swelling, Denies throat swelling and Denies tongue swelling PMFSH Past Medical History Medical History Asthma Cataract already seeing obstetrics technician Cataract, left eye Cataract, right eye COPD (chronic obstructive pulmonary disease) Encounter for long-term (current) use of other medications Heart disease History of tobacco abuse Reports quitting in October 2020 Family History Family History Father Diabetes mellitus Sibling Kidney disease Social History Social History Smoking packs per day: 1 Smoking cigarettes per day: 20.0 Years smoked: 64 Smoking pack-years: 64.00 Smoking status: Former smoker Tobacco type: cigarettes Second hand tobacco smoke exposure: Yes Alcohol intake: former Substance use: unknown Substance use type: does not use Spiritual care concerns: No Exam Const: General: cooperative, healthy appearing, comfortable, no acute distress, well developed, alert and awake; No confusion Orientation/conscio
[2021-08-31 16:54] LABS: INR 1.7; Prothrombin Time 19.2 Seconds (11.1-14.7); Troponin I < 0.012 ng/mL (0.000-0.034)
[2021-08-31 16:55] LABS: Partial Thromboplastin Time 39.8 SECONDS (22.3-36.8)
--- NOTE | 2021-08-31 17:44 | PC.NURSE ---
Pt now c/o lower abdominal pain and nausea. Dr. Carmichael made aware.
[2021-08-31] MEDS: ONDANSETRON INJ 4 MG/2 ML VIAL IV PUSH (17:53)
[2021-08-31] MEDS: SODIUM CHLORIDE 0.9% IV 1,000 ML 999 ML IV CONT (17:53)
[2021-08-31] MEDS: HYDROmorphone HCL INJ (*CRX) 1 MG/ML SYR 0.5 MG IV PUSH (17:54)
--- NOTE | 2021-08-31 18:04 | PC.NURSE ---
Pt to CT.
--- NOTE | 2021-08-31 18:43 | PC.NURSE ---
RN rounded on pt and found pt to be tachycardiac, hypoxic, and hypertensive. SpO2 84% on 3L/NC. O2 increased to 6L. SpO2 now 91%. HR between 110 and 125. BP reading 192/100. Dr. Carmichael made aware of changes in pt condition. Pt c/o sob at this time. Orders placed per ERP.
[2021-08-31] MEDS: methylPREDNISolone SOD SUCC 125 MG VIAL IV PUSH (18:48)
[2021-08-31] MEDS: ALBUTEROL SULFATE NEB 2.5 MG/0.5 ML INH 5 MG INHALATION (18:50)
[2021-08-31] MEDS: IPRATROPIUM BR 0.02% INH SOLN 0.5 MG/2.5 ML VIAL INHALATION (18:51)
--- NOTE | 2021-08-31 19:34 | PC.NURSE ---
Handoff received from Hermila ARMENDARIZ. Pt lying comfortably in ED stretcher. Calm and cooperative. AAOX4. GCS 15. Equal and unlabored resp. Tachypneic. 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 20g IV L hand present, secured and patent. Colostomy to LUQ abd present. Skin is warm and dry. Pending admission orders. Will continue to monitor patient
[2021-08-31 19:37] LABS: Troponin I < 0.012 ng/mL (0.000-0.034)
--- NOTE | 2021-08-31 20:22 | PC.NURSE ---
EDP made aware of patient status. Increased HR, complaining of SOB.Ordered to finish NS fluid bolus.
[2021-08-31 20:55] LABS: SARS-CoV-2 RNA PCR Negative
[2021-08-31 22:13] LABS: D Dimer 1.26 ug/mL (<0.48)
--- NOTE | 2021-08-31 22:59 | PM.IMHP ---
H&P: HPI History of Present Illness Date/Time: 08/31/21 22:59 Chief Complaint: Chest pain Narrative: 81-year-old male with past medical history of COPD/asthma on nighttime home oxygen and prior pulmonary embolism on Xarelto who presented to the ER from [facility] via EMS due to intermittent chest pain for few days up to couple of weeks. The patient reports that he has been having epigastric abdominal pain and pain in his lower anterior chest. Pain is worse with palpation of his abdomen. He does not notice a correlation with eating. He does have somewhat frequent episodes intermittent vomiting. Needle vomit at least every few days. He reports a good appetite. He denies any difficulty swallowing food her feeling as if food is getting stuck. He denies a history of frequent indigestion but does have p.r.n. meds for indigestion at the half-way. Patient is alert oriented to person the fact that he is in the hospital and month and year but that is not the best historian. He also reported some abdominal pain while is in the ER but tells me at this time that he had has intermittent abdominal pain all the time and is unchanged from his baseline. His abdominal pain can be worse with palpation of the abdomen. He has not been having any abdominal distension. His colostomy output is been stable without evidence of melena or or beto blood. He does use p.r.n. and nighttime oxygen at the half-way. He reported that he actually was not having any increased respiratory symptoms until he was already on his way to the ER. He stated that the abdominal pain exacerbated his asthma. Pain is a 7/10 in intensity at its worst. Pain lasts for few seconds and subsides. He reported that today is pain was different in that it radiated up to his left shoulder and arm. He had 3 sets of cardiac enzymes have returned negative. He denies any palpitations. He has not had any lower extremity swelling. He denies any recent ill contacts. He has a history of recent DVT last fall but remains on Xarelto. His D-dimer in the ER was slightly elevated but when corrected for age indicates he is still low risk for new pulmonary embolism. COVID PCR performed in the ER was negative. Review of Systems Review of Systems: 12 systems were reviewed with pertinent positives and negatives per HPI. Except as documented in the HPI, all other systems were reviewed and are negative. [facility] Past Medical History Medical History (Updated 09/01/21 @ 06:22 by Delores Castellanos DO) Asthma Cataract, right eye COPD (chronic obstructive pulmonary disease) Heart disease History of tobacco abuse Reports quitting in October 2020 Hypereosinophilic syndrome, idiopathic Pulmonary embolism (~03/2021) Surgical History Surgical History (Updated 09/01/21 @ 06:22 by Delores Castellanos DO) Colostomy in place History of bowel resection Due to perforation History of left cataract extraction Family History Family History Father Diabetes mellitus Sibling Kidney disease Social History Social History (Updated 09/01/21 @ 06:22 by Delores Castellanos DO) Social History: Code status: DNR/DNI per patient request. Healthcare power of finance attorney: Raiza (daughter) Smoking packs per day: 1 Smoking cigarettes per day: 20.0 Years smoked: 64 Smoking pack-years: 64.00 Smoking status: Former smoker Second hand tobacco smoke exposure: Yes Smoking end date: 08/21/20 Alcohol intake: former Substance use: never Substance use type: does not use Living arrangements: half-way Spiritual care concerns: No Meds Home Medications and Allergies Home Medications Medication Instructions Recorded Confirmed Type Trelegy Ellipta 1 inh INHALATION DAILY #60 ea 04/12/21 08/31/21 Rx ipratropium-albuterol 3 ml INHALATION Q6H PRN #180 ml 04/12/21 08/31/21 Rx acetaminophen 650 mg PO Q6H IN
[2021-08-31 23:05] LABS: Troponin I < 0.012 ng/mL (0.000-0.034)
--- NOTE | 2021-08-31 23:08 | ADMGEN ---
This patient, Rey Cole, was admitted to IMU Room 213-01. Patient/family oriented to hospital policies and general routines including ID bracelet, bed and alarms, visiting hours, pain management, procedures, bathroom and other care routines, personal items, smoking policy, room service/diet, and visiting hours. Information on how to activate the Rapid Response Team has been discussed. Patient/Family are encouraged to report perceived risks to care and to ask questions if they do not understand what they are told or what they should do.
[2021-09-01] VITALS (15 sets, daily range): BP systolic 133–150; BP diastolic 57–80; PULSE 87–119; RESP 18–26; TEMP 35.9–37; O2SAT 93–100
[2021-09-01] MEDS: PANTOPRAZOLE SODIUM IV 40 MG VIAL IV PUSH (00:39)
[2021-09-01] MEDS: RIVAROXABAN 20 MG TABLET PO ×2 (00:39→16:34)
[2021-09-01] MEDS: methylPREDNISolone SOD SUCC 125 MG VIAL 60 MG IV PUSH ×3 (06:25→21:22)
[2021-09-01] MEDS: MAG HYDROX/AL HYDROX/SIMETH 30 ML UDC 5 ML PO (09:15)
[2021-09-01] MEDS: PANTOPRAZOLE 40 MG TABLET PO (09:26)
--- NOTE | 2021-09-01 13:49 | PM.IMPN ---
Progress Note: A&P Assessment and Plan (1) Acute exacerbation of chronic obstructive airways disease: Code(s): J44.1 - Chronic obstructive pulmonary disease with (acute) exacerbation Status: Acute (2) Chest pain: Qualifiers: Chest pain type: unspecified Qualified Code(s): R07.9 - Chest pain, unspecified Code(s): R07.9 - Chest pain, unspecified Status: Acute (3) Acute and chronic respiratory failure with hypoxia: Code(s): J96.21 - Acute and chronic respiratory failure with hypoxia Status: Acute (4) Sinus tachycardia: Code(s): R00.0 - Tachycardia, unspecified Status: Acute (5) Elevated d-dimer: Code(s): R79.89 - Other specified abnormal findings of blood chemistry Status: Acute Additional Plan Patient has COPD exacerbation resulting in his increasing shortness of breath. He has been started on Solu-Medrol 60 mg q.6 hours and scheduled nebulizer treatments. Will continue supplemental oxygen as needed. Patient has noncardiac chest pain his serial cardiac enzymes were negative. His chest pain actually seems more like epigastric abdominal pain which would correlate with CT finding of wall thickening of distal esophagus and proximal stomach. Radiology suggest imaging findings could be associated with malignancy. The patient would benefit from outpatient endoscopy. He denies any difficulty eating or swallowing. Patient is not on PPI therapy at the halfway. Will start the patient on Protonix. Patient has had episodes of sinus tachycardia during prior hospitalizations. His heart rate has improved. He is being monitored on telemetry. The patient's D-dimer was mildly elevated but he is on chronic anticoagulation with Xarelto. His D-dimer corrects to normal based on age. Recurrent PE is less likely. 09/01/21 reproducible chest pain lidocaine patch cont home meds add tramadol PRN add Ketorolac PRN cont steroids cont O2 cont supportive caer Subjective Date/time seen: 09/01/21 13:49 pt complains of chest pain reproducible on palpation and complains of SOB and feeling unwell Exam Narrative: General: Well-developed, well-nourished, elderly HEENT: Mucous membranes are moist, no oral pharyngeal erythema, no scleral icterus Respiratory: Markedly decreased breath sounds bilaterally, no increased work of breathing Cardiovascular: regular rhythm, 2+ bilateral radial pedal pulses Gastrointestinal: Soft, nondistended, ostomy in the left periumbilical region Skin: Generalized pallor, non jaundice Musculoskeletal: No edema, no cyanosis, mild clubbing Neurological: Alert oriented to person, and time w intermittent confusion He moves all extremities equally no gross motor deficits noted on limited exam Psychiatric: Pleasant and cooperative, moments of confusion Objective Data Vital Signs Vital Signs: Vital Signs - 24 hr 08/31/21 16:04 08/31/21 16:12 08/31/21 16:14 Temperature 98.6 F Pulse Rate 75 Respiratory Rate 18 Blood Pressure Pulse Oximetry 98 98 98 08/31/21 17:29 08/31/21 18:06 08/31/21 18:43 Temperature Pulse Rate 80 101 H 118 H Respiratory Rate 15 16 28 H Blood Pressure 142/71 H 155/101 H 192/100 H Pulse Oximetry 95 98 84 L 08/31/21 18:44 08/31/21 18:45 08/31/21 18:46 Temperature Pulse Rate Respiratory Rate Blood Pressure 147/104 H Pulse Oximetry 91 90 08/31/21 18:54 08/31/21 19:02 08/31/21 19:03 Temperature Pulse Rate 112 H 115 H Respiratory Rate 22 H 26 H Blood Pressure 157/85 H Pulse Oximetry 97 98 08/31/21 19:04 08/31/21 19:38 08/31/21 19:39 Temperature Pulse Rate 120 H Respiratory Rate Blood Pressure Pulse Oximetry 96 92 08/31/21 19:40 08/31/21 20:10 08/31/21 20:28 Temperature 97.6 F Pulse Rate 120 H 118 H 105 H Respiratory Rate 22 H 26 H 24 H Blood Pressure 148/110 H 107/70 114/71 Pulse Oximetry 92 93 95 08/31/21 21:57 08/31/21
[2021-09-01] MEDS: ALBUTEROL SULFATE NEB 2.5 MG/0.5 ML INH INHALATION ×2 (14:53→19:56)
[2021-09-01] MEDS: IPRATROPIUM BR 0.02% INH SOLN 0.5 MG/2.5 ML VIAL INHALATION ×2 (14:54→19:56)
--- NOTE | 2021-09-01 16:09 | PC.NURSE ---
This patient, Rey Cole, was transferred to [facility] on 09/01/21 at 1609. Personal belongings sent with patient. Report given to KALA Leonard. Appropriate documentation sent with patient.
[2021-09-02] VITALS (24 sets, daily range): BP systolic 110–136; BP diastolic 55–76; PULSE 65–115; RESP 16–20; TEMP 35.8–37; O2SAT 92–98
[2021-09-02] MEDS: IPRATROPIUM BR 0.02% INH SOLN 0.5 MG/2.5 ML VIAL INHALATION ×4 (01:19→20:19)
[2021-09-02] MEDS: ALBUTEROL SULFATE NEB 2.5 MG/0.5 ML INH INHALATION ×4 (01:19→20:19)
[2021-09-02] MEDS: methylPREDNISolone SOD SUCC 125 MG VIAL 60 MG IV PUSH ×3 (05:56→21:36)
[2021-09-02] MEDS: PANTOPRAZOLE 40 MG TABLET PO (08:10)
[2021-09-02] MEDS: LIDOCAINE 5% PATCH 1 PATCH TRANSDERM (08:10)
--- NOTE | 2021-09-02 13:02 | PM.IMPN ---
Progress Note: A&P Assessment and Plan (1) Acute exacerbation of chronic obstructive airways disease: Code(s): J44.1 - Chronic obstructive pulmonary disease with (acute) exacerbation Status: Acute (2) Chest pain: Qualifiers: Chest pain type: unspecified Qualified Code(s): R07.9 - Chest pain, unspecified Code(s): R07.9 - Chest pain, unspecified Status: Acute (3) Acute and chronic respiratory failure with hypoxia: Code(s): J96.21 - Acute and chronic respiratory failure with hypoxia Status: Acute (4) Sinus tachycardia: Code(s): R00.0 - Tachycardia, unspecified Status: Acute (5) Elevated d-dimer: Code(s): R79.89 - Other specified abnormal findings of blood chemistry Status: Acute Additional Plan Patient has COPD exacerbation resulting in his increasing shortness of breath. He has been started on Solu-Medrol 60 mg q.6 hours and scheduled nebulizer treatments. Will continue supplemental oxygen as needed. Patient has noncardiac chest pain his serial cardiac enzymes were negative. His chest pain actually seems more like epigastric abdominal pain which would correlate with CT finding of wall thickening of distal esophagus and proximal stomach. Radiology suggest imaging findings could be associated with malignancy. The patient would benefit from outpatient endoscopy. He denies any difficulty eating or swallowing. [facility] Will start the patient on Protonix. Patient has had episodes of sinus tachycardia during prior hospitalizations. His heart rate has improved. He is being monitored on telemetry. The patient's D-dimer was mildly elevated but he is on chronic anticoagulation with Xarelto. His D-dimer corrects to normal based on age. Recurrent PE is less likely. 09/01/21 reproducible chest pain lidocaine patch cont home meds add tramadol PRN add Ketorolac PRN cont steroids cont O2 cont supportive care 09/02/21 cont current care resp status improving pain improved anticipate dc home in 24-48hrs Subjective Date/time seen: 09/02/21 13:02 improving, breathing better, receiving duoneb during my visit back pain better w patch Exam Narrative: General: elderly man of apparent age HEENT: Mucous membranes are moist, EOMI Respiratory: Markedly decreased breath sounds bilaterally, no increased work of breathing Cardiovascular: regular rhythm, S1-S2 Gastrointestinal: Soft, nondistended, ostomy in the left periumbilical region Skin: Generalized pallor, non jaundice Musculoskeletal: No edema, no cyanosis, mild clubbing Neurological: Alert oriented to person, and time w intermittent confusion He moves all extremities equally no gross motor deficits noted on limited exam Psychiatric: Pleasant and cooperative, moments of confusion Objective Data Vital Signs Vital Signs: Vital Signs - 24 hr 09/01/21 14:50 09/01/21 14:59 09/01/21 19:50 Temperature Pulse Rate 111 H 107 H 91 Respiratory Rate 26 H 22 H 24 H Blood Pressure Pulse Oximetry 09/01/21 20:00 09/01/21 20:02 09/01/21 20:51 Temperature 96.7 F L Pulse Rate 100 96 87 Respiratory Rate 22 H 18 Blood Pressure 133/57 L Pulse Oximetry 94 100 09/02/21 00:00 09/02/21 00:01 09/02/21 01:22 Temperature 97.0 F L Pulse Rate 84 92 Respiratory Rate 18 Blood Pressure 131/57 L Pulse Oximetry 97 96 09/02/21 01:23 09/02/21 01:29 09/02/21 04:00 Temperature Pulse Rate 99 101 H 90 Respiratory Rate 20 20 Blood Pressure Pulse Oximetry 09/02/21 04:58 09/02/21 08:00 09/02/21 08:10 Temperature 98.6 F Pulse Rate 86 93 115 H Respiratory Rate 18 20 Blood Pressure 136/65 Pulse Oximetry 98 92 09/02/21 08:13 09/02/21 10:55 09/02/21 12:00 Temperature 97.5 F L Pulse Rate 77 81 Respiratory Rate 16 Blood Pressure 132/76 Pulse Oximetry 92 98 Intake/Output Intake/Output: Intake & Ou
[2021-09-02] MEDS: RIVAROXABAN 20 MG TABLET PO (16:46)
[2021-09-03] VITALS (18 sets, daily range): BP systolic 133–137; BP diastolic 55–77; PULSE 72–107; RESP 18–24; TEMP 36.4–36.9; O2SAT 92–100
[2021-09-03] MEDS: ALBUTEROL SULFATE NEB 2.5 MG/0.5 ML INH INHALATION ×4 (02:01→20:08)
[2021-09-03] MEDS: IPRATROPIUM BR 0.02% INH SOLN 0.5 MG/2.5 ML VIAL INHALATION ×4 (02:01→20:08)
[2021-09-03] MEDS: methylPREDNISolone SOD SUCC 125 MG VIAL 60 MG IV PUSH ×3 (06:16→21:37)
[2021-09-03 06:17] LABS: Basophils Percent Auto 0.1 % (0.2-1.2); Hematocrit 35.7 % (42.0-52.0); Hemoglobin 12.2 g/dL (14.0-18.0); Immature Granulocyte Absolute 0.08 K/mm3 (0.00-0.031); Immature Granulocyte Percent A 0.7 % (0-0.5); Lymphocytes Absolute Auto 0.68 K/mm3 (0.9-3.2); Lymphocytes Percent Auto 5.6 % (18.3-44.2); Mean Corpuscular HGB Conc 34.2 g/dl (32-36); Mean Corpuscular Hemoglobin 32.4 pg (26-34); Mean Corpuscular Volume 94.7 fl (80-100); Mean Platelet Volume 10.5 fl (7.4-10.4); Monocytes Absolute Auto 0.5 K/mm3 (0.1-0.6); Monocytes Percent Auto 3.7 % (2.6-8.5); Neutrophils Absolute Auto 10.9 K/mm3 (1.3-6.7); Neutrophils Percent Auto 89.9 % (45.5-73.1); Platelet Count Result 290 k/mm3 (150-375); Red Blood Count 3.77 M/mm3 (4.6-6.20); Red Cell Distribution Width 16.3 % (11.5-14.5); White Blood Count 12.1 K/mm3 (4.5-10.0)
[2021-09-03 06:28] LABS: Anion Gap 7 mmol/L (8-16); Blood Urea Nitrogen 23 mg/dL (9-20); Calcium 8.5 mg/dL (8.4-10.2); Carbon Dioxide 29 mmol/L (22-30); Chloride 102 mmol/L (98-107); Estimated CRCL calculation 67 ml/min; Estimated Glomerular Filt Rate > 60; Glucose 144 mg/dL (65-110); Magnesium 2.2 mg/dL (1.6-2.3); Sodium 138 mmol/L (137-145)
[2021-09-03] MEDS: LIDOCAINE 5% PATCH 1 PATCH TRANSDERM (07:56)
[2021-09-03] MEDS: PANTOPRAZOLE 40 MG TABLET PO (07:56)
[2021-09-03] MEDS: FLUTICASONE/UMECLIDIN/VILANTER 200-62.5-25 MCG ELLIPTA 1 PUFF INHALATION (08:38)
--- NOTE | 2021-09-03 16:08 | PM.IMPN ---
Progress Note: A&P Assessment and Plan (1) Acute exacerbation of chronic obstructive airways disease: Code(s): J44.1 - Chronic obstructive pulmonary disease with (acute) exacerbation Status: Acute (2) Chest pain: Qualifiers: Chest pain type: unspecified Qualified Code(s): R07.9 - Chest pain, unspecified Code(s): R07.9 - Chest pain, unspecified Status: Acute (3) Acute and chronic respiratory failure with hypoxia: Code(s): J96.21 - Acute and chronic respiratory failure with hypoxia Status: Acute (4) Sinus tachycardia: Code(s): R00.0 - Tachycardia, unspecified Status: Acute (5) Elevated d-dimer: Code(s): R79.89 - Other specified abnormal findings of blood chemistry Status: Acute Additional Plan Patient has COPD exacerbation resulting in his increasing shortness of breath. He has been started on Solu-Medrol 60 mg q.6 hours and scheduled nebulizer treatments. Will continue supplemental oxygen as needed. Patient has noncardiac chest pain his serial cardiac enzymes were negative. His chest pain actually seems more like epigastric abdominal pain which would correlate with CT finding of wall thickening of distal esophagus and proximal stomach. Radiology suggest imaging findings could be associated with malignancy. The patient would benefit from outpatient endoscopy. He denies any difficulty eating or swallowing. Patient is not on PPI therapy at the senior living. Will start the patient on Protonix. Patient has had episodes of sinus tachycardia during prior hospitalizations. His heart rate has improved. He is being monitored on telemetry. The patient's D-dimer was mildly elevated but he is on chronic anticoagulation with Xarelto. His D-dimer corrects to normal based on age. Recurrent PE is less likely. 09/01/21 reproducible chest pain lidocaine patch cont home meds add tramadol PRN add Ketorolac PRN cont steroids cont O2 cont supportive care 09/02/21 cont current care resp status improving pain improved anticipate dc home in 24-48hrs 09/03/21 pt improving but states still not back to baseline cont current care supplemental O2 home O2 eval for O2 recs to return to senior living steroid taper at dc back pain improved w lidocaine patch Subjective Date/time seen: 09/03/21 16:08 Patient doing okay states that he is not back at his baseline although his oxygen requirements have improved, back pain resolved Exam Narrative: General: elderly man of apparent age, Pleasant and cooperative HEENT: Mucous membranes are moist, EOMI Respiratory: decreased breath sounds bilaterally, no wheezing, no rales, no increased work of breathing Cardiovascular: regular rhythm, S1-S2 Gastrointestinal: Soft, nondistended, ostomy in the left periumbilical region Skin: Generalized pallor, non jaundice Musculoskeletal: No edema, no cyanosis, mild clubbing Neurological: Alert oriented to person, and time w intermittent confusion He moves all extremities equally no gross motor deficits noted on limited exam Psychiatric: Mood and affect congruent Objective Data Vital Signs Vital Signs: Vital Signs - 24 hr 09/02/21 23:46 09/03/21 00:00 09/03/21 02:02 Temperature 98.0 F Pulse Rate 65 82 92 Respiratory Rate 18 18 Blood Pressure 123/55 L Pulse Oximetry 97 09/03/21 02:12 09/03/21 03:35 09/03/21 04:00 Temperature 97.6 F Pulse Rate 93 78 80 Respiratory Rate 18 18 Blood Pressure 134/56 L Pulse Oximetry 98 09/03/21 05:39 09/03/21 08:00 09/03/21 08:38 Temperature 97.8 F Pulse Rate 72 107 H 86 Respiratory Rate 18 24 H 18 Blood Pressure 134/55 L Pulse Oximetry 97 93 93 09/03/21 08:47 09/03/21 09:09 09/03/21 12:00 Temperature Pulse Rate 96 87 Respiratory Rate 18 Blood Pressure Pulse Oximetry 92 09/03/21 13:46 09/03/21 13:54 09/03/21 14:14 Temperature 98.0 F Pulse Rate 88 82 88 Respiratory Rate
[2021-09-03] MEDS: RIVAROXABAN 20 MG TABLET PO (18:30)
[2021-09-04] VITALS (10 sets, daily range): BP systolic 128–129; BP diastolic 56–70; PULSE 72–92; RESP 18; TEMP 36.6–37.1; O2SAT 94–97
[2021-09-04] MEDS: ALBUTEROL SULFATE NEB 2.5 MG/0.5 ML INH INHALATION ×2 (02:01→08:15)
[2021-09-04] MEDS: IPRATROPIUM BR 0.02% INH SOLN 0.5 MG/2.5 ML VIAL INHALATION ×2 (02:01→08:15)
[2021-09-04] MEDS: methylPREDNISolone SOD SUCC 125 MG VIAL 60 MG IV PUSH (06:25)
[2021-09-04] MEDS: LIDOCAINE 5% PATCH 1 PATCH TRANSDERM (08:00)
[2021-09-04] MEDS: PANTOPRAZOLE 40 MG TABLET PO (08:00)
[2021-09-04] MEDS: FLUTICASONE/UMECLIDIN/VILANTER 200-62.5-25 MCG ELLIPTA 1 PUFF INHALATION (08:16)
--- NOTE | 2021-09-04 11:30 | PM.IMPN ---
Progress Note: A&P Assessment and Plan (1) Acute exacerbation of chronic obstructive airways disease: Code(s): J44.1 - Chronic obstructive pulmonary disease with (acute) exacerbation Status: Acute Assessment and Plan: Patient has COPD exacerbation resulting in his increasing shortness of breath. He has been started on Solu-Medrol 60 mg q.6 hours and scheduled nebulizer treatments. Will continue supplemental oxygen as needed. Patient has noncardiac chest pain his serial cardiac enzymes were negative. His chest pain actually seems more like epigastric abdominal pain which would correlate with CT finding of wall thickening of distal esophagus and proximal stomach. Radiology suggest imaging findings could be associated with malignancy. The patient would benefit from outpatient endoscopy. He denies any difficulty eating or swallowing. Patient is not on PPI therapy at the care home. Will start the patient on Protonix. Patient has had episodes of sinus tachycardia during prior hospitalizations. His heart rate has improved. He is being monitored on telemetry. The patient's D-dimer was mildly elevated but he is on chronic anticoagulation with Xarelto. His D-dimer corrects to normal based on age. Recurrent PE is less likely. 09/01/21 reproducible chest pain lidocaine patch cont home meds add tramadol PRN add Ketorolac PRN cont steroids cont O2 cont supportive care 09/02/21 cont current care resp status improving pain improved anticipate dc home in 24-48hrs 09/03/21 pt improving but states still not back to baseline cont current care supplemental O2 home O2 eval for O2 recs to return to care home steroid taper at dc back pain improved w lidocaine patch 09/04/21 Taper off iv steroids and dc tomorrow back to SNF (2) Chest pain: Qualifiers: Chest pain type: unspecified Qualified Code(s): R07.9 - Chest pain, unspecified Code(s): R07.9 - Chest pain, unspecified Status: Acute (3) Acute and chronic respiratory failure with hypoxia: Code(s): J96.21 - Acute and chronic respiratory failure with hypoxia Status: Acute (4) Sinus tachycardia: Code(s): R00.0 - Tachycardia, unspecified Status: Acute (5) Elevated d-dimer: Code(s): R79.89 - Other specified abnormal findings of blood chemistry Status: Acute Subjective Date/time seen: 09/04/21 11:30 Interval history: 81-year-old male with past medical history of COPD/asthma on nighttime home oxygen and prior pulmonary embolism on Xarelto who presented to the ER from [facility] via EMS due to intermittent chest pain for few days up to couple of weeks. The patient reports that he has been having epigastric abdominal pain and pain in his lower anterior chest. Pt feels better taper off iv steroids and dc back to SNF tomorrow. Review of Systems Review of Systems: All systems reviewed & are unremarkable except as noted in HPI and below Exam Const: General: cooperative and healthy appearing; No in distress Nutritional Appearance: overweight Orientation/consciousness: oriented to person HENMT: Head: normal to inspection Resp: Effort & Inspection: no respiratory distress Auscultation: no rhonchi and no wheezes Cardio: Rate: regular rate Rhythm: regular rhythm GI: Inspection: normal to inspection GI Palp: No abdominal tenderness, No Guarding due to palpation present (GI) and No Hepatomegaly present Auscultation: normal bowel sounds Neuro: General: oriented to person Objective Data Vital Signs Vital Signs: Vital Signs - 24 hr 09/03/21 12:00 09/03/21 13:46 09/03/21 13:54 Temperature Pulse Rate 87 88 82 Respiratory Rate 18 18 Blood Pressure Pulse Oximetry 09/03/21 14:14 09/03/21 16:00 09/03/21 20:00 Temperature 36.7 C Pulse Rate 88 81 82 Respiratory Rate 18 18 Blood Pressure 137/61 Pulse Oximetry 98 100 09/03/21 20:04 09/03/21 20:10
[2021-09-04 12:28] LABS: EDCOVIDSCREEN Negative (Negative)
[2021-09-04] MEDS: methylPREDNISolone SOD SUCC 40 MG VIAL 30 MG IV PUSH (13:07)
--- NOTE | 2021-09-04 13:32 | PM.DS ---
DS: Admitting Diagnosis Discharge Date 09/04/2021 Admitting Diagnosis Chest pain DS: Discharge Diagnosis Discharge Diagnosis (1) Acute exacerbation of chronic obstructive airways disease: Code(s): J44.1 - Chronic obstructive pulmonary disease with (acute) exacerbation Status: Acute Assessment and Plan: Patient has COPD exacerbation resulting in his increasing shortness of breath. He has been started on Solu-Medrol 60 mg q.6 hours and scheduled nebulizer treatments. Will continue supplemental oxygen as needed. Patient has noncardiac chest pain his serial cardiac enzymes were negative. His chest pain actually seems more like epigastric abdominal pain which would correlate with CT finding of wall thickening of distal esophagus and proximal stomach. Radiology suggest imaging findings could be associated with malignancy. The patient would benefit from outpatient endoscopy. He denies any difficulty eating or swallowing. Patient is not on PPI therapy at the senior living. Will start the patient on Protonix. Patient has had episodes of sinus tachycardia during prior hospitalizations. His heart rate has improved. He is being monitored on telemetry. The patient's D-dimer was mildly elevated but he is on chronic anticoagulation with Xarelto. His D-dimer corrects to normal based on age. Recurrent PE is less likely. 09/01/21 reproducible chest pain lidocaine patch cont home meds add tramadol PRN add Ketorolac PRN cont steroids cont O2 cont supportive care 09/02/21 cont current care resp status improving pain improved anticipate dc home in 24-48hrs 09/03/21 pt improving but states still not back to baseline cont current care supplemental O2 home O2 eval for O2 recs to return to senior living steroid taper at dc back pain improved w lidocaine patch 09/04/21 Taper off iv steroids and dc tomorrow back to SNF with oral steroids (2) Chest pain: Qualifiers: Chest pain type: unspecified Qualified Code(s): R07.9 - Chest pain, unspecified Code(s): R07.9 - Chest pain, unspecified Status: Acute Assessment and Plan: SEE ABOVE (3) Acute and chronic respiratory failure with hypoxia: Code(s): J96.21 - Acute and chronic respiratory failure with hypoxia Status: Acute Assessment and Plan: SEE ABOVE (4) Sinus tachycardia: Code(s): R00.0 - Tachycardia, unspecified Status: Acute Assessment and Plan: SEE ABOVE (5) Elevated d-dimer: Code(s): R79.89 - Other specified abnormal findings of blood chemistry Status: Acute Assessment and Plan: SEE ABOVE DS: Summary Hospital Course Hospital Course: 81-year-old male with past medical history of COPD/asthma on nighttime home oxygen and prior pulmonary embolism on Xarelto who presented to the ER from [facility] via EMS due to intermittent chest pain for few days up to couple of weeks. The patient reports that he has been having epigastric abdominal pain and pain in his lower anterior chest. Pt feels better taper off iv steroids and dc back to SNF today. Time Spent with Patient Time attestation: Total time spent providing and/or coordinating discharge services:45 minutes on day of discharge Exam Const: General: cooperative and healthy appearing; No in distress Nutritional Appearance: overweight Orientation/consciousness: oriented to person HENMT: Head: normal to inspection Resp: Effort & Inspection: no respiratory distress Auscultation: no rhonchi and no wheezes Cardio: Rate: regular rate Rhythm: regular rhythm GI: Inspection: normal to inspection Auscultation: normal bowel sounds Neuro: General: oriented to person DS: Data Data Completed and Pending Labs on day of discharge: Labs from last 24 hours 09/04/21 12:10 SARS-CoV-2 IgG/IgM Ag?Rapid Negative Discharge Plan Discharge Attending physician on discharge: Abi Steele [place]
[2021-09-04] MEDS: RIVAROXABAN 20 MG TABLET PO (17:05)
== END 2021-09-04 17:30 | DRG 190 ==
LOC: ANHED 17:26 → ANHIMU 21:52 → ANH3MED 09-01 16:15
PROVIDERS: Internal Medicine; Admitting Provider Hospitalist; Emergency Provider Emergency Medicine; PCP Internal Medicine; Visit Provider Family Medicine
DX: J44.1 Chronic obstructive pulmonary disease with (acute) exacerbation (principal); J96.21 Acute and chronic respiratory failure with hypoxia; Z86.711 Personal history of pulmonary embolism; Z20.822 Contact with and (suspected) exposure to COVID-19; Z87.891 Personal history of nicotine dependence; I51.9 Heart disease, unspecified; R00.0 Tachycardia, unspecified; R79.89 Other specified abnormal findings of blood chemistry; R07.89 Other chest pain; R10.13 Epigastric pain; Z99.81 Dependence on supplemental oxygen; Z79.01 Long term (current) use of anticoagulants; Z79.51 Long term (current) use of inhaled steroids; Z66 Do not resuscitate
CPT/HCPCS: 36415; 71046; 74177; 80048; 80053; 83690; 83735; 84484; 85025; 85380; 85610; 85730; 87426; 93005; 94640; 96361; 96374; 96375; 96376; 99285; A9270; C9113; C9803; G0378; J1170; J2405; J2920; J2930; J7030; Q9967; U0003; U0005